=== PATIENT | female | born 1975 | race Caucasian/White ===

== ENCOUNTER 2020-09-13 16:39 | Observation (INO) ==
--- NOTE | 2020-09-13 16:43 | Emergency Department Note ---
Impression & Plan Atypical chest pain, History of aortic dissection ED Provider Note NAME: FERNANDEZ ELLIOTT AGE: 45 SEX: F : 1975 ARRIVES VIA: Ambulance INFORMANT: Patient, ED PROVIDER(S): Adelso Cho MD Chief Complaint: Chest pain HPI: Patient does present with concern for chest pain that began 1 hour prior to arrival. Patient describes it as an elephant sitting on her chest. Patient describes it as left-sided and but with moderate radiation to left arm. Patient does have a known history of aortic valve repair x2 and aortic dissection. This was repaired before. The patient does follow with Dr. Mendez and Dr. Miranda. Patient denies any fevers chills shortness of breath. The patient has had mild abdominal discomfort. Patient did receive aspirin nitro and nausea medication in route which mildly improved her symptoms. The patient does describe it as pressure. Patient did not have any diaphoresis. Patient denies any smoking history. The patient is not vaccinated for Covid. The patient denies infec tious symptoms. ROS: See HPI for pertinent positives and negatives. A total of 10 systems were revi ewed and otherwise negative. Past medical history: See below Surgical history: See below Social history: See below Physical Exam: GENERAL: Wearing a mask. NAD, non-toxic. EYE EXAM: Normal conjunctiva. PERRL, no anisocoria and EOM's grossly intact w/o pain. NECK: Supple, no nuchal rigidity, no adenopathy, non-tender. No signs of meningismus. LUNGS: Clear to auscultation. Normal chest wall mechanics. HEART: NSR, no MRG. ABDOMEN: Abdomen soft, non-tender, normo-active bowel sounds, no masses, no rebound or guarding. BACK: No CVA TTP. SKIN: No rashes and no bruising. UPPER EXTREMITIES: Upper extremities are grossly normal. LOWER EXTREMITIES: Grossly normal, no edema. NEURO EXAM: A&O x3, cranial nerves II-XII grossly intact, normal speech, moves all 4 extremities on command w/o issue. Differential diagnoses: Cardiac ischemia, aortic dissection, pulmonary embolism, pneumothorax, pneumonia, pericarditis, myocarditis, esophageal rupture, GERD, cholecystitis, pancreatitis, musculoskeletal, as well as other pathologies. Course: Patient was seen and evaluated the bedside. Full history physical exam was performed. EKG interpreted by me Normal sinus rhythm, rate of 65, normal intervals, normal axis, slight depressions in the lateral and high lateral leads. Imaging Studies: See below Cardiac monitoring: An order was placed for continuous cardiac monitoring. The monitor shows a rate of 65 with sinus rhythm. MDM: Patient did have bladder completed along with CT angiography is of the chest and abdomen. Patient has a normal white count H&H and platelet count. Kidney func tion is unremarkable. Mild hypokalemia. Patient's INR is therapeutic at 3. Covid negative. Patient CT angiography shows chronic type B dissection. No change. Given that the patient did have concerning atypical chest pain and has significant cardiac history it is reviewed the on-call hospitalist Arlene Sanchez PA-C. The patient was admitted by Dr. Flores. 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 H/O partial nephrectomy History of aortic dissection Hx of tubal ligation S/P appendectomy S/P cholecystectomy S/P tonsillectomy and adenoidectomy Family History Other Hypertension Ovarian cancer Tuberous sclerosis Social History (Updated 09/13/20 @ 19:06 by Arlene Sanchez PA-C) Smoking Status: Never smoker Hx Alcohol Use: No Hx Substance Use: No Preferred Language: Chinese Communication Ability: Effective Beliefs That Will Affect Care: None Current Living Situation: Significant Other Current Living Situation Comment: lives with boyfriend Other Information That Helps Us Care for You: Yes (son in 2018) Feels Safe at Home: Yes Safety Concerns: Feels Safe At This Time Assistive Devices: Denture - Upper and Glasses Allergies Allergies Allergy/AdvReac Type Severity Reaction Status Date / Time Sulfa (Sulfonamide Allergy Severe ANAPHYLAXIS Verified 09/13/20 19:03 Antibiotics) aloe Allergy Unknown ITCHY AND Verified 09/13/20 19:03 HIVES Cipro AdvReac Intermediate [facility] Verified 10/22/15 03:56 ciprofloxacin AdvReac Intermediate [facility] Verified 09/13/20 19:03 Home Meds Home Medications Medication Instructions Recorded Confirmed cholecalciferol (vitamin D3) 1,000 unit PO QAM 11/13/18 09/13/20 [Vitamin D3] levothyroxine 75 mcg PO DAILYBB 11/13/18 09/13/20 metoprolol tartrate 100 mg PO BID 11/13/18 09/13/20 multivitamin 1 tab PO QAM 11/13/18 09/13/20 omeprazole 20 mg PO QAM 11/13/18 09/13/20 potassium chloride [Klor-Con 10] 10 meq PO QAM 11/13/18 09/13/20 rosuvastatin 20 mg PO QAM 11/13/18 09/13/20 ascorbic acid (vitamin C) 250 mg PO QAM 04/23/19 09/13/20 furosemide 40 mg PO QAM 04/23/19 09/13/20 hydroxyzine HCl 25 mg PO TID PRN 04/23/19 09/13/20 amiodarone [Pacerone] 200 mg PO BID 09/13/20 09/13/20 docusate sodium [Colace] 100 mg PO BID PRN 09/13/20 09/13/20 warfarin [Jantoven] 2.5 mg PO DAILY@1600 09/13/20 09/13/20 Results & Data (ED) Vital Signs Vital Signs - 24 hr 09/13/20 16:45 09/13/20 16:51 09/13/20 16:54 Temperature 36.8 C Temperature Source Oral Pulse Rate 64 65 67 Pulse Rate from SpO2 Sensor 64 66 Respiratory Rate 21 20 19 Respiratory Effort / Characteristics Non-Labored Respiratory Depth Normal Respiratory Pattern Regular Blood Pressure 182/80 H 182/80 H Blood Pressure Mean 114 114 Blood Pressure Position Sitting Pulse Oximetry 95 97 95 Oxygen Delivery Method Room Air Sepsis Recent Fever Within 48 Hours No Sepsis New/Unexplained Change in Mental Status No Sepsis Action Taken by Nursing No Action Required 09/13/20 17:00 09/13/20 17:04 09/13/20 17:30 Temperature Temperature Source Oral Pulse Rate 67 64 Pulse Rate from SpO2 Sensor 65 65 Respiratory Rate 16 19 Respiratory Effort / Characteristics Respiratory Depth Respiratory Pattern Blood Pressure Blood Pressure Mean Blood Pressure Position Pulse Oximetry 96 97 Oxygen Delivery Method Room Air Sepsis Recent Fever Within 48 Hours Sepsis New/Unexplained Change in Mental Status Sepsis Action Taken by Nursing 09/13/20 17:32 09/13/20 18:38 Temperature Temperature Source Pulse Rate 68 62 Pulse Rate from SpO2 Sensor 67 Respiratory Rate 27 H 19 Respiratory Effort / Characteristics Respiratory Depth Respiratory Pattern Blood Pressure 174/100 H 162/82 H Blood Pressure Mean 124 108 Blood Pressure Position Pulse Oximetry 95 Oxygen Delivery Method Sepsis Recent Fever Within 48 Hours Sepsis New/Unexplained Change in Mental Status Sepsis Action Taken by Detention Medications Current Medication List: was personally reviewed by me Laboratory Data Attestation: I reviewed the patient's lab results. Result diagrams: 09/13/20 16:57 09/13/20 16:57 Lab Results 09/13/20 09/13/20 09/13/20 Range/Units 16:57 16:57 16:57 WBC 5.02 (4.8-10.8) K/uL RBC 4.46 (4.2-5.4) M/uL Hgb 13.8 (12.0-16.0) g/dL Hct 40.0 (37-47) % MCV 89.7 (80-100) fL MCH 30.9 (25-34) pg MCHC 34.5 (32-36) g/dL RDW Std Deviation 47.8 H (36.4-46.3) fL RDW Coeff of Leroy 14.5 (11.5-14.5) % Plt Count 205 (130-400) K/uL MPV 9.4 (7.4-10.4) fL Immature Gran % (Auto) 0.2 % Neut % (Auto) 52.0 % Lymph % (Auto) 38.2 % [place] % (Auto) 7.4 % Eos % (Auto) 1.6 % Baso % (Auto) 0.6 % Neut # (Auto) 2.61 (1.4-6.5) K/uL Lymph # (Auto) 1.92 (1.2-3.4) K/uL [place] # (Auto) 0.37 (0.11-0.59) K/uL Eos # (Auto) 0.08 (0-0.5) K/uL Baso # (Auto) 0.03 (0-0.2) K/uL Immature Gran # (Auto) 0.01 (0.00-0.02) K/uL PT 27.7 H (9.0-12.0) Seconds INR 3.0 H (0.9-1.1) APTT 45.4 H* (21.0-31.0) Seconds PTT Ratio 1.7 Sodium 140 (136-145) mmol/L Potassium 3.4 L (3.5-5.1) mmol/L Chloride 106 (98-107) mmol/L Carbon Dioxide 28 (21-32) mmol/L Anion Gap 6.0 (3-11) BUN 16 (7-18) mg/dl Creatinine 1.12 (0.6-1.2) mg/dl Est Cr Clr Drug Dosing 91.3 ml/min Est GFR ( Amer) 69.2 ml/min Est GFR (Non-Af Amer) 59.7 ml/min BUN/Creatinine Ratio 14.2 (10-20) Glucose 89 (70-99) mg/dl Calcium 9.2 (8.5-10.1) mg/dl Total Bilirubin 0.4 (0.2-1) mg/dl AST 12 L (15-37) U/L ALT 18 (12-78) U/L Alkaline Phosphatase 89 (45-117) U/L Troponin I < 0.015 (0-0.045) ng/ml Total Protein 7.3 (6.4-8.2) gm/dl Albumin 3.9 (3.4-5.0) gm/dl Globulin 3.4 (2.5-4.0) gm/dl Albumin/Globulin Ratio 1.1 (0.9-2) Lipase 212 (73-393) U/L COVID-19 Eval Order SARS-CoV-2 (PCR) (Negative) 09/13/20 09/13/20 Range/Units 17:30 17:30 WBC (4.8-10.8) K/uL RBC (4.2-5.4) M/uL Hgb (12.0-16.0) g/dL Hct (37-47) % MCV (80-100) fL MCH (25-34) pg MCHC (32-36) g/dL RDW Std Deviation (36.4-46.3) fL RDW Coeff of Leroy (11.5-14.5) % Plt Count (130-400) K/uL MPV (7.4-10.4) fL Immature Gran % (Auto) % Neut % (Auto) % Lymph % (Auto) % [place] % (Auto) % Eos % (Auto) % Baso % (Auto) % Neut # (Auto) (1.4-6.5) K/uL Lymph # (Auto) (1.2-3.4) K/uL [place] # (Auto) (0.11-0.59) K/uL Eos # (Auto) (0-0.5) K/uL Baso # (Auto) (0-0.2) K/uL Immature Gran # (Auto) (0.00-0.02) K/uL PT (9.0-12.0) Seconds INR (0.9-1.1) APTT (21.0-31.0) Seconds PTT Ratio Sodium (136-145) mmol/L Potassium (3.5-5.1) mmol/L Chloride (98-107) mmol/L Carbon Dioxide (21-32) mmol/L Anion Gap (3-11) BUN (7-18) mg/dl Creatinine (0.6-1.2) mg/dl Est Cr Clr Drug Dosing ml/min Est GFR ( Amer) ml/min Est GFR (Non-Af Amer) ml/min BUN/Creatinine Ratio (10-20) Glucose (70-99) mg/dl Calcium (8.5-10.1) mg/dl Total Bilirubin (0.2-1) mg/dl AST (15-37) U/L ALT (12-78) U/L Alkaline Phosphatase (45-117) U/L Troponin I (0-0.045) ng/ml Total Protein (6.4-8.2) gm/dl Albumin (3.4-5.0) gm/dl Globulin (2.5-4.0) gm/dl Albumin/Globulin Ratio (0.9-2) Lipase (73-393) U/L COVID-19 Eval Order Covid19 at [facility] SARS-CoV-2 (PCR) NEGATIVE (Negative) Administered Medications Discontinued Medications Ioversol (Optiray 320 125ml) 120 ml IV ONCE ONE Stop: 09/13/20 18:03 Last Admin: 09/13/20 18:02 Dose: 120 ml Documented by: [id number] Morphine Sulfate (Morphine Sulfate 4 Mg/Ml 1 Ml Carp\Vial) 4 mg IV NOW STA Stop: 09/13/20 16:52 Last Admin: 09/13/20 17:27 Dose: 4 mg Documented by: [id number] Imaging Data Radiologist's Impression: Abdomen/Pelvis CTA 09/13/20 16:51 CT ANGIOGRAM OF THE CHEST COMBO, CT ANGIOGRAM OF THE ABDOMEN AND PELVIS CLINICAL HISTORY: Atypical chest pain. Dyspnea. History of aortic dissection. COMPARISON STUDY: Chest CT dated 12/17/2014. Abdominal CT dated 04/23/2019. TECHNIQUE: Unenhanced CT of the chest is performed. Following the IV administration of 120 cc of Optiray 320, CT angiogram of the chest, abdomen, and pelvis was performed from the thoracic inlet to the proximal femora. Images are reviewed in the axial, sagittal, and coronal planes. 3-D MIPS images are created and assessed. IV contrast was administered without complication. A dose lowering technique was utilized adhering to the principles of ALARA. CT DOSE: 2976.21 mGy.cm FINDINGS: CHEST: Thyroid: Enlarged and heterogeneous. Thoracic aorta: No intramural hematoma is seen on the unenhanced series. Postoperative change is noted at the aortic root. The thoracic aorta is normal in course and caliber. The aortic arch demonstrates standard 3-vessel anatomy. There is unchanged appearance of a type B aortic dissection as compared to the 2015 examination. Dissection originates in the descending thoracic aorta and extends into the upper abdomen. The true and false lumen are patent. The arch vessels are widely patent. Pulmonary vasculature: The pulmonary trunk is normal in caliber. There are no filling defects within the main, lobar, or segmental pulmonary arteries to suggest pulmonary embolus. Heart: The patient is status post midline sternotomy. There is postoperative change at the aortic valve/root. The heart is mildly enlarged and without pericardial effusion. Fatty change involving the ventricular septum suggests previous myocardial ischemia. Lungs and pleural spaces: There is no airspace consolidation or pleural effusion. Mild scarring/atelectasis is noted at the lung bases. The trachea and central airways are clear. There is a 5 mm left apical pulmonary nodule seen on image #42. Additional (less than 10) 1 to 2 mm pulmonary nodules scattered throughout both lungs are also unchanged. These are of low suspicion. Mediastinum: There is no mediastinal lymphadenopathy. Glendy: Clear. Axillae: Surgical clips are noted in the right supraaxillary tissues. There is no axillary lymphadenopathy. Bony thorax: The skeletal structures are osteopenic. Mild compression deformities are noted in the thoracic spine. No lytic or blastic bony lesions are identified. ABDOMEN AND PELVIS: Liver: The contrast-enhanced liver is size and attenuation. There is mild nodularity of the hepatic surface contour. There is mild intrahepatic biliary ductal dilatation. The main portal veins appear patent. There are least 2 fat attenuation hepatic lesions. The largest is in the left lobe measures 1.8 cm. These likely represent lipomas/angiomyolipomas. Gallbladder: Surgically absent noting clips in the gallbladder fossa. Spleen: Normal in size and attenuation noting heterogeneous arterial phase enhancement. Pancreas: Unremarkable. Adrenal glands: A 1.8 cm low-attenuation right adrenal nodule is unchanged and likely represents an adenoma. The left adrenal gland is normal in appearance. Kidneys: The contrast enhanced kidneys are normal in size and without hydronephrosis. The kidneys enhance symmetrically. There is postoperative change from partial nephrectomy noted in both kidneys. No enhancing cortical lesion is identified on today's examination. Abdominal aorta and iliac arteries: There is mild atherosclerotic calcification of the abdominal aorta. 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 This extends from the descending thoracic aorta to the iliac bifurcation. The true and false lumens are patent. The iliac arteries are widely patent bilaterally. Major branches of the abdominal aorta: The celiac trunk, superior mesenteric, and inferior mesenteric arteries are widely patent. The celiac trunk and superior mesenteric arteries arise from the true lumen. The inferior mesenteric artery straddles the dissection. Hepatic arterial anatomy is conventional. The splenic artery is patent. Single bilateral renal arteries are widely patent. The renal arteries arise from the true lumen. Stomach and bowel: There is a small hiatal hernia. There is no bowel obstruction. Scattered colonic diverticula are noted without CT evidence of acute diverticulitis. The appendix is surgically absent. Peritoneum: There is no intraperitoneal free air or abdominal ascites. There is a fat-containing umbilical hernia. Lymphadenopathy: None. Pelvic viscera: Postsurgical change is noted in the left groin. The bladder is normal as visualized. The uterus is heterogeneous. Question fibroids. The adnexa are normal as imaged noting bilateral ovarian follicles. Skeletal structures: The skeletal structures are osteopenic. There is mild lumbosacral spondylosis. No lytic or blastic lesions are seen. IMPRESSION: 1. Postoperative change is again seen involving the aortic valve/aortic root. 2. There is unchanged appearance of a type B aortic dissection of the thoracic and abdominal aorta as detailed above when compared to prior studies. 3. There is no evidence of pulmonary embolus in the main, lobar, or segmental pulmonary arteries. 4. Unremarkable CT angiogram of the major branches of the abdominal aorta. 5. There is no airspace consolidation or pleural effusion. 6. No acute infectious or inflammatory findings identified in the abdomen or pelvis. 7. 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 8. Partial nephrectomy change is noted in both kidneys. 9. Cardiomegaly. 10. Additional findings as above. ACT 112: Negative or not required by law. Electronically signed by: Stanley Martinez M.D. 09/13/2020 6:32 PM Chest CTA 09/13/20 16:51 CT ANGIOGRAM OF THE CHEST COMBO, CT ANGIOGRAM OF THE ABDOMEN AND PELVIS CLINICAL HISTORY: Atypical chest pain. Dyspnea. History of aortic dissection. COMPARISON STUDY: Chest CT dated 12/17/2014. Abdominal CT dated 04/23/2019. TECHNIQUE: Unenhanced CT of the chest is performed. Following the IV administration of 120 cc of Optiray 320, CT angiogram of the chest, abdomen, and pelvis was performed from the thoracic inlet to the proximal femora. Images are reviewed in the axial, sagittal, and coronal planes. 3-D MIPS images are created and assessed. IV contrast was administered without complication. A dose lowering technique was utilized adhering to the principles of ALARA. CT DOSE: 2976.21 mGy.cm FINDINGS: CHEST: Thyroid: Enlarged and heterogeneous. Thoracic aorta: No intramural hematoma is seen on the unenhanced series. Postoperative change is noted at the aortic root. The thoracic aorta is normal in course and caliber. The aortic arch demonstrates standard 3-vessel anatomy. There is unchanged appearance of a type B aortic dissection as compared to the 2015 examination. Dissection originates in the descending thoracic aorta and extends into the upper abdomen. The true and false lumen are patent. The arch vessels are widely patent. Pulmonary vasculature: The pulmonary trunk is normal in caliber. There are no filling defects within the main, lobar, or segmental pulmonary arteries to suggest pulmonary embolus. Heart: The patient is status post midline sternotomy. There is postoperative change at the aortic valve/root. The heart is mildly enlarged and without pericardial effusion. Fatty change involving the ventricular septum suggests previous myocardial ischemia. Lungs and pleural spaces: There is no airspace consolidation or pleural effusion. Mild scarring/atelectasis is noted at the lung bases. The trachea and central airways are clear. There is a 5 mm left apical pulmonary nodule seen on image #42. Additional (less than 10) 1 to 2 mm pulmonary nodules scattered throughout both lungs are also unchanged. These are of low suspicion. Mediastinum: There is no mediastinal lymphadenopathy. Glendy: Clear. Axillae: Surgical clips are noted in the right supraaxillary tissues. There is no axillary lymphadenopathy. Bony thorax: The skeletal structures are osteopenic. Mild compression deformities are noted in the thoracic spine. No lytic or blastic bony lesions are identified. ABDOMEN AND PELVIS: Liver: The contrast-enhanced liver is size and attenuation. There is mild nod ularity of the hepatic surface contour. There is mild intrahepatic biliary ductal dilatation. The main portal veins appear patent. There are least 2 fat attenuation hepatic lesions. The largest is in the left lobe measures 1.8 cm. These likely represent lipomas/angiomyolipomas. Gallbladder: Surgically absent noting clips in the gallbladder fossa. Spleen: Normal in size and attenuation noting heterogeneous arterial phase enhancement. Pancreas: Unremarkable. Adrenal glands: A 1.8 cm low-attenuation right adrenal nodule is unchanged and likely represents an adenoma. The left adrenal gland is normal in appearance. Kidneys: The contrast enhanced kidneys are normal in size and without hydronephrosis. The kidneys enhance symmetrically. There is postoperative change from partial nephrectomy noted in both kidneys. No enhancing cortical lesion is identified on today's examination. Abdominal aorta and iliac arteries: There is mild atherosclerotic calcification of the abdominal aorta. 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 This extends from the descending thoracic aorta to the iliac bifurcation. The true and false lumens are patent. The iliac arteries are widely patent bilaterally. Major branches of the abdominal aorta: The celiac trunk, superior mesenteric, an d inferior mesenteric arteries are widely patent. The celiac trunk and superior mesenteric arteries arise from the true lumen. The inferior mesenteric artery straddles the dissection. Hepatic arterial anatomy is conventional. The splenic artery is patent. Single bilateral renal arteries are widely patent. The renal arteries arise from the true lumen. Stomach and bowel: There is a small hiatal hernia. There is no bowel obstruction. Scattered colonic diverticula are noted without CT evidence of acute diverticulitis. The appendix is surgically absent. Peritoneum: There is no intraperitoneal free air or abdominal ascites. There is a fat-containing umbilical hernia. Lymphadenopathy: None. Pelvic viscera: Postsurgical change is noted in the left groin. The bladder is normal as visualized. The uterus is heterogeneous. Question fibroids. The adnexa are normal as imaged noting bilateral ovarian follicles. Skeletal structures: The skeletal structures are osteopenic. There is mild lumbosacral spondylosis. No lytic or blastic lesions are seen. IMPRESSION: 1. Postoperative change is again seen involving the aortic valve/aortic root. 2. There is unchanged appearance of a type B aortic dissection of the thoracic and abdominal aorta as detailed above when compared to prior studies. 3. There is no evidence of pulmonary embolus in the main, lobar, or segmental pulmonary arteries. 4. Unremarkable CT angiogram of the major branches of the abdominal aorta. 5. There is no airspace consolidation or pleural effusion. 6. No acute infectious or inflammatory findings identified in the abdomen or pelvis. 7. 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 8. Partial nephrectomy change is noted in both kidneys. 9. Cardiomegaly. 10. Additional findings as above. ACT 112: Negative or not required by law. Electronically signed by: Stanley Martinez M.D. 09/13/2020 6:32 PM Chest X-Ray 09/13/20 16:51 SINGLE VIEW CHEST CLINICAL HISTORY: Atypical chest pain. Dyspnea. FINDINGS: An AP, portable, upright chest radiograph is compared to study dated 06/02/2015. Correlation is made with chest CT dated 12/17/2014. The patient is status post midline sternotomy and cardiac valve surgery. The heart is mildly enlarged. The pulmonary vasculature is noncongested. There is bibasilar atelectasis. No airspace consolidation or pleural effusion is identified. No pneumothorax is seen. The skeletal structures appear osteopenic. The bony thorax is grossly intact. Surgical clips project in the right upper chest. IMPRESSION: Mild cardiac enlargement with no active disease in the chest. ACT 112: Negative or not required by law. Electronically signed by: Stanley Martinez M.D. 09/13/2020 5:57 PM Discharge Plan Visit Data Chief Complaint: Chest Pain Stated Complaint: CHEST PAIN ED Provider: Adelso Cho Discharge Problem: Atypical chest pain, History of aortic dissection Patient Disposition: Admitted As Inpatient Discharge Instructions Interventions: ED Discharge Assessment Last Done: 09/13/20 19:56
[2020-09-13] MEDS ORDERED: MoRPHine SULFATE 4 MG/ML 1 ML CARP\\VIAL IV STA ×2 (16:51→21:05)
[2020-09-13 17:05] LABS: Basophils # (auto) 0.03 K/uL (0-0.2); Basophils % (auto) 0.6 %; Eosinophils # (auto) 0.08 K/uL (0-0.5); Eosinophils % (auto) 1.6 %; Hemoglobin 13.8 g/dL (12.0-16.0); Immature Granulocytes # (auto) 0.01 K/uL (0.00-0.02); Immature Granulocytes % (auto) 0.2 %; Lymphocytes # (auto) 1.92 K/uL (1.2-3.4); Lymphocytes % (auto) 38.2 %; Mean Corpuscular Hemoglobin 30.9 pg (25-34); Mean Corpuscular Hgb Conc 34.5 g/dL (32-36); Mean Corpuscular Volume 89.7 fL (80-100); Mean Platelet Volume 9.4 fL (7.4-10.4); Monocytes # (auto) 0.37 K/uL (0.11-0.59); Monocytes % (auto) 7.4 %; Neutrophils # (auto) 2.61 K/uL (1.4-6.5); Platelet Count 205 K/uL (130-400); RDW Coefficient of Variation 14.5 % (11.5-14.5); RDW Standard Deviation 47.8 fL (36.4-46.3); Red Blood Count 4.46 M/uL (4.2-5.4); White Blood Count 5.02 K/uL (4.8-10.8)
[2020-09-13 17:28] LABS: Alanine Aminotransferase 18 U/L (12-78); Albumin Level 3.9 gm/dl (3.4-5.0); Aspartate Aminotransferase 12 U/L (15-37); BUN Creatinine Ratio 14.2 (10-20); Blood Urea Nitrogen 16 mg/dl (7-18); Calcium 9.2 mg/dl (8.5-10.1); Carbon Dioxide 28 mmol/L (21-32); Chloride 106 mmol/L (98-107); Creatinine Clr Calc Pharmacy 91.3 ml/min; Est GFR (African American) 69.2 ml/min; Est GFR (Non-African American) 59.7 ml/min; Glucose 89 mg/dl (70-99); Lipase 212 U/L (73-393); Potassium 3.4 mmol/L (3.5-5.1); Sodium 140 mmol/L (136-145)
[2020-09-13 17:33] LABS: Albumin Globulin Ratio 1.1 (0.9-2); Alkaline Phosphatase 89 U/L (45-117); Bilirubin,Total 0.4 mg/dl (0.2-1); Globulin 3.4 gm/dl (2.5-4.0); Total Protein 7.3 gm/dl (6.4-8.2); Troponin I < 0.015 ng/ml (0-0.045)
[2020-09-13 17:34] LABS: Partial Thromboplastin Ratio 1.7; Prothrombin Time 27.7 Seconds (9.0-12.0)
[2020-09-13 17:44] LABS: Partial Thromboplastin Time 45.4 Seconds (21.0-31.0)
--- NOTE | 2020-09-13 17:58 | XRay Report ---
SINGLE VIEW CHEST CLINICAL HISTORY: Atypical chest pain. Dyspnea. FINDINGS: An AP, portable, upright chest radiograph is compared to study dated 06/02/2015. Correlation is made with chest CT dated 12/17/2014. The patient is status post midline sternotomy and cardiac bryce ve surgery. The heart is mildly enlarged. The pulmonary vasculature is noncongested. There is bibasil ar atelectasis. No airspace consolidation or pleural effusion is identified. No pneumothorax is seen. The skeletal structures appear osteopenic. The bony thorax is grossly intact. Surgical clips project in the right upper chest. IMPRESSION: Mild cardiac enlargement with no active disease in the chest. ACT 112: Negative or not required by law. Electronically signed by: Stanley Martinez M.D. 09/13/2020 5:57 PM
[2020-09-13] MEDS ORDERED: OPTIRAY 320 125ml IV ONE (18:02)
--- NOTE | 2020-09-13 18:34 | CT Scan Report ---
CT ANGIOGRAM OF THE CHEST COMBO, CT ANGIOGRAM OF THE ABDOMEN AND PELVIS CLINICAL HISTORY: Atypical chest pain. Dyspnea. History of aortic dissection. COMPARISON STUDY: Chest CT dated 12/17/2014. Abdominal CT dated 04/23/2019. TECHNIQUE: Unenhanced CT of the chest is performed. Following the IV administration of 120 cc of Opti ray 320, CT angiogram of the chest, abdomen, and pelvis was performed from the thoracic inlet to the proximal femora. Images are reviewed in the axial, sagittal, and coronal planes. 3-D MIPS images are created and assessed. IV contrast was administered without complication. A dose lowering technique wa s utilized adhering to the principles of ALARA. CT DOSE: 2976.21 mGy.cm FINDINGS: CHEST: Thyroid: Enlarged and heterogeneous. Thoracic aorta: No intramural hematoma is seen on the unenhanced series. Postoperative change is note d at the aortic root. The thoracic aorta is normal in course and caliber. The aortic arch demonstrate s standard 3-vessel anatomy. There is unchanged appearance of a type B aortic dissection as compared to the 2015 examination. Dissection originates in the descending thoracic aorta and extends into the upper abdomen. The true and false lumen are patent. The arch vessels are widely patent. Pulmonary vasculature: The pulmonary trunk is normal in caliber. There are no filling defects within the main, lobar, or segmental pulmonary arteries to suggest pulmonary embolus. Heart: The patient is status post midline sternotomy. There is postoperative change at the aortic bryce ve/root. The heart is mildly enlarged and without pericardial effusion. Fatty change involving the ve ntricular septum suggests previous myocardial ischemia. Lungs and pleural spaces: There is no airspace consolidation or pleural effusion. Mild scarring/atele ctasis is noted at the lung bases. The trachea and central airways are clear. There is a 5 mm left ap ical pulmonary nodule seen on image #42. Additional (less than 10) 1 to 2 mm pulmonary nodules scatte red throughout both lungs are also unchanged. These are of low suspicion. Mediastinum: There is no mediastinal lymphadenopathy. Glendy: Clear. Axillae: Surgical clips are noted in the right supraaxillary tissues. There is no axillary lymphadeno russ. Bony thorax: The skeletal structures are osteopenic. Mild compression deformities are noted in the th oracic spine. No lytic or blastic bony lesions are identified. ABDOMEN AND PELVIS: Liver: The contrast-enhanced liver is size and attenuation. There is mild nodularity of the hepatic s urface contour. There is mild intrahepatic biliary ductal dilatation. The main portal veins appear pa tent. There are least 2 fat attenuation hepatic lesions. The largest is in the left lobe measures 1.8 cm. These likely represent lipomas/angiomyolipomas. Gallbladder: Surgically absent noting clips in the gallbladder fossa. Spleen: Normal in size and attenuation noting heterogeneous arterial phase enhancement. Pancreas: Unremarkable. Adrenal glands: A 1.8 cm low-attenuation right adrenal nodule is unchanged and likely represents an a denoma. The left adrenal gland is normal in appearance. Kidneys: The contrast enhanced kidneys are normal in size and without hydronephrosis. The kidneys enh ance symmetrically. There is postoperative change from partial nephrectomy noted in both kidneys. No enhancing cortical lesion is identified on today's examination. Abdominal aorta and iliac arteries: There is mild atherosclerotic calcification of the abdominal aort a. 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 This extend s from the descending thoracic aorta to the iliac bifurcation. The true and false lumens are patent. The iliac arteries are widely patent bilaterally. Major branches of the abdominal aorta: The celiac trunk, superior mesenteric, and inferior mesenteric arteries are widely patent. The celiac trunk and superior mesenteric arteries arise from the true monique men. The inferior mesenteric artery straddles the dissection. Hepatic arterial anatomy is conventiona l. The splenic artery is patent. Single bilateral renal arteries are widely patent. The renal arterie s arise from the true lumen. Stomach and bowel: There is a small hiatal hernia. There is no bowel obstruction. Scattered colonic d iverticula are noted without CT evidence of acute diverticulitis. The appendix is surgically absent. Peritoneum: There is no intraperitoneal free air or abdominal ascites. There is a fat-containing umbi lical hernia. Lymphadenopathy: None. Pelvic viscera: Postsurgical change is noted in the left groin. The bladder is normal as visualized. The uterus is heterogeneous. Question fibroids. The adnexa are normal as imaged noting bilateral ovar esther follicles. Skeletal structures: The skeletal structures are osteopenic. There is mild lumbosacral spondylosis. N o lytic or blastic lesions are seen. IMPRESSION: 1. Postoperative change is again seen involving the aortic valve/aortic root. 2. There is unchanged appearance of a type B aortic dissection of the thoracic and abdominal aorta as detailed above when compared to prior studies. 3. There is no evidence of pulmonary embolus in the main, lobar, or segmental pulmonary arteries. 4. Unremarkable CT angiogram of the major branches of the abdominal aorta. 5. There is no airspace consolidation or pleural effusion. 6. No acute infectious or inflammatory findings identified in the abdomen or pelvis. 7. 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 8. Partial nephrectomy change is noted in both kidneys. 9. Cardiomegaly. 10. Additional findings as above. ACT 112: Negative or not required by law. Electronically signed by: Stanley Martinez M.D. 09/13/2020 6:32 PM
--- NOTE | 2020-09-13 18:52 | History & Physical Report ---
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 Chest heaviness improved with ntg EKG without acute ischemic changes Initial troponin negative Chest CTA with unchanged appearance of a type B aortic dissection of the thoracic and abdominal aorta when compared to prior studies, no evidence of PE Follows with CHRISTIANE Coronel for cardiology and Dr. 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 Barrett of neurology S/p partial L nephrectomy in 2016 and partial R nephrectomy in 2019 (3) History of aortic dissection: History of type 1 aortic dissection with repair in 2006, "Type B" aortic dissection without change on CT scan in 2012 Also presence of aneurysm of the distal descending abdominal aorta measuring 3.4 x 3.1 cm - will also need surveillance (4) CKD (chronic kidney disease), stage III: Renal function at baseline. Monitor with daily BMP (5) Chronic diastolic (congestive) heart failure: Appears euvolemic. Continue Lasix (6) Atrial fibrillation: Continue amiodarone, Lopressor BID Continue Coumadin for anticoagulation Daily INR (7) Hypothyroidism: Continue levothyroxine DVT Ppx: coumadin Code status: FULL PCP: Chandan Dispo: Observation telemetry Patient seen in collaboration with Dr. Flores. Please see addendum. 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 States she was watching TV earlier today when she developed heaviness on left- sided chest. Pain radiated up towards left shoulder and was worse when she ambulated to the restroom. Not associate with any shortness of breath, nausea or vomiting. Improved when given nitro by EMS in route to hospital. Also received 3 and 24 mg of aspirin. Also endorsing some palpitations intermittently since developing chest pain earlier today. Follows with CHRISTIANE Coronel for cardiology and Dr. Miranda for EP cardiology. 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 Last 2D echo from 03/08 showed EF 60-64%, left ventricular diastolic function is severely abnormal (grade III). Patient is status post valve in valve TAVR. Allergies Allergy/AdvReac Type Severity Reaction Status Date / Time Sulfa (Sulfonamide Allergy Severe ANAPHYLAXIS Verified 09/13/20 19:03 Antibiotics) aloe Allergy Unknown ITCHY AND Verified 09/13/20 19:03 HIVES Cipro AdvReac Intermediate siezure Verified 10/22/15 03:56 ciprofloxacin AdvReac Intermediate siezure Verified 09/13/20 19:03 Home Medications Medication Instructions Recorded Confirmed Type cholecalciferol (vitamin D3) 1,000 unit PO QAM 11/13/18 09/13/20 History [Vitamin D3] levothyroxine 75 mcg PO DAILYBB 11/13/18 09/13/20 History metoprolol tartrate 100 mg PO BID 11/13/18 09/13/20 History multivitamin 1 tab PO QAM 11/13/18 09/13/20 History omeprazole 20 mg PO QAM 11/13/18 09/13/20 History potassium chloride [Klor-Con 10] 10 meq PO QAM 11/13/18 09/13/20 History rosuvastatin 20 mg PO QAM 11/13/18 09/13/20 History ascorbic acid (vitamin C) 250 mg PO QAM 04/23/19 09/13/20 History furosemide 40 mg PO QAM 04/23/19 09/13/20 History hydroxyzine HCl 25 mg PO TID PRN 04/23/19 09/13/20 History Keppra 1,000 mg PO BID 09/13/20 09/13/20 History amiodarone [Pacerone] 200 mg PO BID 09/13/20 09/13/20 History docusate sodium [Colace] 100 mg PO BID PRN 09/13/20 09/13/20 History sertraline 200 mg PO DAILY 09/13/20 09/13/20 History warfarin [Jantoven] 2.5 mg PO DAILY@1600 09/13/20 09/13/20 History 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 H/O partial nephrectomy History of aortic dissection Hx of tubal ligation S/P appendectomy S/P cholecystectomy S/P tonsillectomy and adenoidectomy Family History Other Hypertension Ovarian cancer Tuberous sclerosis Social History (Updated 09/13/20 @ 19:06 by Arlene Sanchez PA-C) Smoking Status: Never smoker Hx Alcohol Use: No Hx Substance Use: No Preferred Language: Malian Communication Ability: Effective Beliefs That Will Affect Care: None Current Living Situation: Significant Other Current Living Situation Comment: lives with boyfriend Other Information That Helps Us Care for You: Yes (son in 2018) Feels Safe at Home: Yes Safety Concerns: Feels Safe At This Time Assistive Devices: Denture - Upper and Glasses Review of Systems Review of Systems: At least ten systems reviewed and negative except as noted in the HPI. Physical Exam Physical Exam: General Appearance: WD/WN, vitals as above, NAD, sitting up in bed, pleasant, conversing easily Head: normocephalic, atraumatic Eyes: normal inspection, PERRL, conjunctivae normal, anicteric sclerae ENT: external ear and nose normal, oropharynx normal Neck: normal visual inspection, trachea midline, no thyromegaly Respiratory: normal respiratory effort, lungs clear to auscultation, no wheeze, rales, rhonchi. No accessory muscle use Cardiovascular: regular rate, rhythm, systolic murmur, normal peripheral pulses, no BLE edema. Vessels: no JVD Chest: normal inspection of chest, left sided CP reproducible with palpation Abdomen/GI: normal bowel sounds, soft, nontender, no hepatosplenomegaly Extremities/Musculoskeletal: no cyanosis or clubbing, extremities motor strength 5/5 Neurologic: PERRL, EOMI, accommodation nl, no face palsy, no dysarthria, CN's II-XI intact bilaterally and moves all extremities Psychiatric: A+Ox3, euthymic affect Skin: no rashes, normal color, warm/dry Results & Data Results & Data ([facility]) Vital Signs (Past 12 Hours) Vital Signs Temp Pulse Resp BP Pulse Ox 09/13/20 17:32 68 27 H 174/100 H 95 09/13/20 17:30 64 19 97 09/13/20 17:00 67 16 96 09/13/20 16:54 67 19 95 09/13/20 16:51 36.8 C 65 20 182/80 H 97 09/13/20 16:45 64 21 182/80 H 95 Laboratory Results Short CBC 09/13/20 Range/Units 16:57 WBC 5.02 (4.8-10.8) K/uL Hgb 13.8 (12.0-16.0) g/dL Hct 40.0 (37-47) % Plt Count 205 (130-400) K/uL BMP 09/13/20 16:57 Sodium 140 Potassium 3.4 L Chloride 106 Carbon Dioxide 28 BUN 16 Creatinine 1.12 Glucose 89 Calcium 9.2 Cardiac Enzymes 09/13/20 Range/Units 16:57 Troponin I < 0.015 (0-0.045) ng/ml Liver Function 09/13/20 Range/Units 16:57 Total Bilirubin 0.4 (0.2-1) mg/dl AST 12 L (15-37) U/L ALT 18 (12-78) U/L Alkaline Phosphatase 89 (45-117) U/L Albumin 3.9 (3.4-5.0) gm/dl Diagnostic Findings Abdomen/Pelvis CTA 09/13/20 16:51 CT ANGIOGRAM OF THE CHEST COMBO, CT ANGIOGRAM OF THE ABDOMEN AND PELVIS CLINICAL HISTORY: Atypical chest pain. Dyspnea. History of aortic dissection. COMPARISON STUDY: Chest CT dated 12/17/2014. Abdominal CT dated 04/23/2019. TECHNIQUE: Unenhanced CT of the chest is performed. Following the IV administration of 120 cc of Optiray 320, CT angiogram of the chest, abdomen, and pelvis was performed from the thoracic inlet to the proximal femora. Images are reviewed in the axial, sagittal, and coronal planes. 3-D MIPS images are created and assessed. IV contrast was administered without complication. A dose lowering technique was utilized adhering to the principles of ALARA. CT DOSE: 2976.21 mGy.cm FINDINGS: CHEST: Thyroid: Enlarged and heterogeneous. Thoracic aorta: No intramural hematoma is seen on the unenhanced series. Postoperative change is noted at the aortic root. The thoracic aorta is normal in course and caliber. The aortic arch demonstrates standard 3-vessel anatomy. There is unchanged appearance of a type B aortic dissection as compared to the 2015 examination. Dissection originates in the descending thoracic aorta and extends into the upper abdomen. The true and false lumen are patent. The arch vessels are widely patent. Pulmonary vasculature: The pulmonary trunk is normal in caliber. There are no filling defects within the main, lobar, or segmental pulmonary arteries to suggest pulmonary embolus. Heart: The patient is status post midline sternotomy. There is postoperative change at the aortic valve/root. The heart is mildly enlarged and without pericardial effusion. Fatty change involving the ventricular septum suggests previous myocardial ischemia. Lungs and pleural spaces: There is no airspace consolidation or pleural effusion. Mild scarring/atelectasis is noted at the lung bases. The trachea and central airways are clear. There is a 5 mm left apical pulmonary nodule seen on image #42. Additional (less than 10) 1 to 2 mm pulmonary nodules scattered throughout both lungs are also unchanged. These are of low suspicion. Mediastinum: There is no mediastinal lymphadenopathy. Glendy: Clear. Axillae: Surgical clips are noted in the right supraaxillary tissues. There is no axillary lymphadenopathy. Bony thorax: The skeletal structures are osteopenic. Mild compression deformities are noted in the thoracic spine. No lytic or blastic bony lesions are identified. ABDOMEN AND PELVIS: Liver: The contrast-enhanced liver is size and attenuation. There is mild nodularity of the hepatic surface contour. There is mild intrahepatic biliary ductal dilatation. The main portal veins appear patent. There are least 2 fat attenuation hepatic lesions. The largest is in the left lobe measures 1.8 cm. These likely represent lipomas/angiomyolipomas. Gallbladder: Surgically absent noting clips in the gallbladder fossa. Spleen: Normal in size and attenuation noting heterogeneous arterial phase enhancement. Pancreas: Unremarkable. Adrenal glands: A 1.8 cm low-attenuation right adrenal nodule is unchanged and likely represents an adenoma. The left adrenal gland is normal in appearance. Kidneys: The contrast enhanced kidneys are normal in size and without hydronephrosis. The kidneys enhance symmetrically. There is postoperative change from partial nephrectomy noted in both kidneys. No enhancing cortical lesion is identified on today's examination. Abdominal aorta and iliac arteries: There is mild atherosclerotic calcification of the abdominal aorta. 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 A t ype B dissection of the abdominal aorta is unchanged. This extends from the descending thoracic aorta to the iliac bifurcation. The true and false lumens are patent. The iliac arteries are widely patent bilaterally. Major branches of the abdominal aorta: The celiac trunk, superior mesenteric, and inferior mesenteric arteries are widely patent. The celiac trunk and superior mesenteric arteries arise from the true lumen. The inferior mesenteric artery straddles the dissection. Hepatic arterial anatomy is conventional. The splenic artery is patent. Single bilateral renal arteries are widely patent. The renal arteries arise from the true lumen. Stomach and bowel: There is a small hiatal hernia. There is no bowel obstruction. Scattered colonic diverticula are noted without CT evidence of ac [place] diverticulitis. The appendix is surgically absent. Peritoneum: There is no intraperitoneal free air or abdominal ascites. There is a fat-containing umbilical hernia. Lymphadenopathy: None. Pelvic viscera: Postsurgical change is noted in the left groin. The bladder is normal as visualized. The uterus is heterogeneous. Question fibroids. The adnexa are normal as imaged noting bilateral ovarian follicles. Skeletal structures: The skeletal structures are osteopenic. There is mild lumbosacral spondylosis. No lytic or blastic lesions are seen. IMPRESSION: 1. Postoperative change is again seen involving the aortic valve/aortic root. 2. There is unchanged appearance of a type B aortic dissection of the thoracic and abdominal aorta as detailed above when compared to prior studies. 3. There is no evidence of pulmonary embolus in the main, lobar, or segmental pulmonary arteries. 4. Unremarkable CT angiogram of the major branches of the abdominal aorta. 5. There is no airspace consolidation or pleural effusion. 6. No acute infectious or inflammatory findings identified in the abdomen or pelvis. 7. 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 8. Partial nephrectomy change is noted in both kidneys. 9. Cardiomegaly. 10. Additional findings as above. ACT 112: Negative or not required by law. Electronically signed by: Stanley Martinez M.D. 09/13/2020 6:32 PM Chest CTA 09/13/20 16:51 CT ANGIOGRAM OF THE CHEST COMBO, CT ANGIOGRAM OF THE ABDOMEN AND PELVIS CLINICAL HISTORY: Atypical chest pain. Dyspnea. History of aortic dissection. COMPARISON STUDY: Chest CT dated 12/17/2014. Abdominal CT dated 04/23/2019. TECHNIQUE: Unenhanced CT of the chest is performed. Following the IV administration of 120 cc of Optiray 320, CT angiogram of the chest, abdomen, and pelvis was performed from the thoracic inlet to the proximal femora. Images are reviewed in the axial, sagittal, and coronal planes. 3-D MIPS images are created and assessed. IV contrast was administered without complication. A dose lowering technique was utilized adhering to the principles of ALARA. CT DOSE: 2976.21 mGy.cm FINDINGS: CHEST: Thyroid: Enlarged and heterogeneous. Thoracic aorta: No intramural hematoma is seen on the unenhanced series. Postoperative change is noted at the aortic root. The thoracic aorta is normal in course and caliber. The aortic arch demonstrates standard 3-vessel anatomy. There is unchanged appearance of a type B aortic dissection as compared to the 2015 examination. Dissection originates in the descending thoracic aorta and extends into the upper abdomen. The true and false lumen are patent. The arch vessels are widely patent. Pulmonary vasculature: The pulmonary trunk is normal in caliber. There are no filling defects within the main, lobar, or segmental pulmonary arteries to suggest pulmonary embolus. Heart: The patient is status post midline sternotomy. There is postoperative change at the aortic valve/root. The heart is mildly enlarged and without pericardial effusion. Fatty change involving the ventricular septum suggests previous myocardial ischemia. Lungs and pleural spaces: There is no airspace consolidation or pleural effusion. Mild scarring/atelectasis is noted at the lung bases. The trachea and central airways are clear. There is a 5 mm left apical pulmonary nodule seen on image #42. Additional (less than 10) 1 to 2 mm pulmonary nodules scattered throughout both lungs are also unchanged. These are of low suspicion. Mediastinum: There is no mediastinal lymphadenopathy. Glendy: Clear. Axillae: Surgical clips are noted in the right supraaxillary tissues. There is no axillary lymphadenopathy. Bony thorax: The skeletal structures are osteopenic. Mild compression deformities are noted in the thoracic spine. No lytic or blastic bony lesions are identified. ABDOMEN AND PELVIS: Liver: The contrast-enhanced liver is size and attenuation. There is mild nodularity of the hepatic surface contour. There is mild intrahepatic biliary ductal dilatation. The main portal veins appear patent. There are least 2 fat attenuation hepatic lesions. The largest is in the left lobe measures 1.8 cm. These likely represent lipomas/angiomyolipomas. Gallbladder: Surgically absent noting clips in the gallbladder fossa. Spleen: Normal in size and attenuation noting heterogeneous arterial phase enhancement. Pancreas: Unremarkable. Adrenal glands: A 1.8 cm low-attenuation right adrenal nodule is unchanged and likely represents an adenoma. The left adrenal gland is normal in appearance. Kidneys: The contrast enhanced kidneys are normal in size and without hydronephrosis. The kidneys enhance symmetrically. There is postoperative change from partial nephrectomy noted in both kidneys. No enhancing cortical lesion is identified on today's examination. Abdominal aorta and iliac arteries: There is mild atherosclerotic calcification of the abdominal aorta. 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 This extends from the descending thoracic aorta to the iliac bifurcation. The true and false lumens are patent. The iliac arteries are widely patent bilaterally. Major branches of the abdominal aorta: The celiac trunk, superior mesenteric, and inferior mesenteric arteries are widely patent. The celiac trunk and superior mesenteric arteries arise from the true lumen. The inferior mesenteric artery straddles the dissection. Hepatic arterial anatomy is conventional. The splenic artery is patent. Single bilateral renal arteries are widely patent. The renal arteries arise from the true lumen. Stomach and bowel: There is a small hiatal hernia. There is no bowel obstruction. Scattered colonic diverticula are noted without CT evidence of acute diverticulitis. The appendix is surgically absent. Peritoneum: There is no intraperitoneal free air or abdominal ascites. There is a fat-containing umbilical hernia. Lymphadenopathy: None. Pelvic viscera: Postsurgical change is noted in the left groin. The bladder is normal as visualized. The uterus is heterogeneous. Question fibroids. The adnexa are normal as imaged noting bilateral ovarian follicles. Skeletal structures: The skeletal structures are osteopenic. There is mild lumbosacral spondylosis. No lytic or blastic lesions are seen. IMPRESSION: 1. Postoperative change is again seen involving the aortic valve/aortic root. 2. There is unchanged appearance of a type B aortic dissection of the thoracic and abdominal aorta as detailed above when compared to prior studies. 3. There is no evidence of pulmonary embolus in the main, lobar, or segmental pulmonary arteries. 4. Unremarkable CT angiogram of the major branches of the abdominal aorta. 5. There is no airspace consolidation or pleural effusion. 6. No acute infectious or inflammatory findings identified in the abdomen or pelvis. 7. 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 8. Partial nephrectomy change is noted in both kidneys. 9. Cardiomegaly. 10. Additional findings as above. ACT 112: Negative or not required by law. Electronically signed by: Stanley Martinez M.D. 09/13/2020 6:32 PM Chest X-Ray 09/13/20 16:51 SINGLE VIEW CHEST CLINICAL HISTORY: Atypical chest pain. Dyspnea. FINDINGS: An AP, portable, upright chest radiograph is compared to study dated 06/02/2015. Correlation is made with chest CT dated 12/17/2014. The patient is status post midline sternotomy and cardiac valve surgery. The heart is mildly enlarged. The pulmonary vasculature is noncongested. There is bibasilar atelectasis. No airspace consolidation or pleural effusion is identified. No pneumothorax is seen. The skeletal structures appear osteopenic. The bony thorax is grossly intact. Surgical clips project in the right upper chest. IMPRESSION: Mild cardiac enlargement with no active disease in the chest. ACT 112: Negative or not required by law. Electronically signed by: Stanley Martinez M.D. 09/13/2020 5:57 PM ECG Rhythm: normal sinus Change: no significant change Supervising Physician Co-Signing Physician Notes Care coordinated with Arlene Vasquez PA-C. Agree with above note. Patient seen and examined. Please refer to her notes for full details. Vital signs reviewed. Physical exam: General exam: Alert and oriented. Not in acute distress. CVS: S1 and S2 heard, regular rate and rhythm, no murmurs. RS: Clear to auscultation, no wheezing or crackles. ABD: Soft, bowel sounds present, nontender, no distention. CARE INFORMATION ASSOCIATE: Nonfocal. EXT: No edema, no erythema. Labs: Reviewed. Assessment and plan: 45f presents with chest pain radiating to left shoulder. Somewhat relived by nitro and morphine but still has some chest pain. Chest pain hx of aortic dissection s/p repair CTA chest and CTA abd/plevis- no acute findings ekg and troponin unremarkable will place on nitro paste follow serial CE and echo cardio consult in am monitor in tele AAA 3.4 x 3.1 cm needs followup. Other diagnosis and plan of care as per Arlene Vasquez PA-C . Lucho young MD.
[2020-09-13] MEDS ORDERED: NITROGLYCERIN SL 0.4 MG/TAB TAB SL PRN (20:26)
[2020-09-13] MEDS ORDERED: DOCUSATE SODIUM 100 MG CAP PO PRN (20:26)
[2020-09-13] MEDS ORDERED: POLYETHYLENE (MIRALAX) 17 GM PACK PO PRN (20:26)
[2020-09-13] MEDS ORDERED: ACETAMINOPHEN 325 MG TAB PO PRN (20:26)
[2020-09-13] MEDS ORDERED: hydrOXYzine HCl 25 MG TAB PO PRN (20:26)
[2020-09-13] MEDS ORDERED: ONDANSETRON INJ 2 MG/ML 2 ML VIAL IV PRN (20:26)
[2020-09-13] MEDS: AMIODARONE 200 MG TAB PO SCH (21:47)
[2020-09-13] MEDS: METOPROLOL TARTRATE 100 MG TAB PO SCH (21:48)
[2020-09-13] MEDS ORDERED: SERTRALINE HCL 100 MG TABLET PO STA (21:58)
[2020-09-13] MEDS: levETIRAcetam 500 MG TAB PO SCH (22:27)
[2020-09-13] MEDS: NITROGLYCERIN 2% OINTMENT 30GM TUBE EXT SCH (22:27)
[2020-09-14] MEDS: NITROGLYCERIN 2% OINTMENT 30GM TUBE EXT SCH ×3 (04:43→15:35)
[2020-09-14 05:58] LABS: Hematocrit (blood only) 37.7 % (37-47); Hemoglobin 12.8 g/dL (12.0-16.0); Mean Corpuscular Hemoglobin 30.5 pg (25-34); Mean Corpuscular Volume 89.8 fL (80-100); Mean Platelet Volume 9.2 fL (7.4-10.4); Platelet Count 189 K/uL (130-400); RDW Coefficient of Variation 14.8 % (11.5-14.5); RDW Standard Deviation 48.4 fL (36.4-46.3); White Blood Count 4.94 K/uL (4.8-10.8)
[2020-09-14 06:15] LABS: INR 3.7 (0.9-1.1); Prothrombin Time 33.6 Seconds (9.0-12.0)
[2020-09-14] MEDS ORDERED: LEVOTHYROXINE SODIUM 75 MCG TABLET PO SCH (06:30)
[2020-09-14 06:35] LABS: BUN Creatinine Ratio 16.5 (10-20); Blood Urea Nitrogen 15 mg/dl (7-18); Calcium 8.9 mg/dl (8.5-10.1); Carbon Dioxide 28 mmol/L (21-32); Chloride 108 mmol/L (98-107); Est GFR (African American) 88.9 ml/min; Est GFR (Non-African American) 76.7 ml/min; Glucose 100 mg/dl (70-99); Potassium 3.5 mmol/L (3.5-5.1); Sodium 138 mmol/L (136-145)
[2020-09-14 06:40] LABS: Troponin I < 0.015 ng/ml (0-0.045)
[2020-09-14] MEDS: levETIRAcetam 500 MG TAB PO SCH (08:05)
[2020-09-14] MEDS: AMIODARONE 200 MG TAB PO SCH (08:05)
[2020-09-14] MEDS: METOPROLOL TARTRATE 100 MG TAB PO SCH (08:07)
[2020-09-14] MEDS ORDERED: CHOLECALCIFEROL 1,000 UNITS 25 MCG TAB PO SCH (09:00)
[2020-09-14] MEDS ORDERED: ASCORBIC ACID 500 MG TAB PO SCH (09:00)
[2020-09-14] MEDS ORDERED: FUROSEMIDE 40 MG TAB PO SCH (09:00)
[2020-09-14] MEDS ORDERED: SERTRALINE HCL 100 MG TABLET PO SCH (09:00)
[2020-09-14] MEDS ORDERED: POTASSIUM CHLORIDE 10 MEQ TABCR PO SCH (09:00)
[2020-09-14] MEDS ORDERED: ROSUVASTATIN CALCIUM 20 MG TAB PO SCH (09:00)
[2020-09-14] MEDS ORDERED: PANTOprazole 40 MG TAB PO SCH (09:00)
[2020-09-14] MEDS ORDERED: MULTIVITAMIN TAB PO SCH (09:00)
[2020-09-14] MEDS ORDERED: PERFLUTREN LIPID MICROSPHERE (DEFINITY) IV ONE (13:21)
--- NOTE | 2020-09-14 15:06 | Cardiology Consultation ---
Date of Consultation September 14, 2020 Assessment & Plan (1) Atypical chest pain: Patient is a complex 45-year-old female with longstanding history of intermittent chest discomfort with known vascular disease and valvular disease as outlined above. She presents now with chest pain without discerning evidence of myocardial ischemia by EKG and enzyme criteria. Patient underwent low-level stress testing to 4 minutes on a Kenn protocol (stage I only) with patient stopping secondary to fatigue and blunted heart rate response to exercise. No ischemia by EKG or echocardiogram at limited heart rate achieved. Diagnostic cardiac catheterizations without obstructive disease 2014 and 2017 Findings do not suggest acute coronary syndrome or angina pectoris. Plan: We'll reduce amiodarone to 200 mg once per day. Patient to keep appointment with Dr. Miranda as scheduled in 2 days. Event monitor to be placed at that time. All other medications to be continued as ordered. Recommend Covid vaccination (2) History of aortic dissection: (3) H/O aortic valve replacement: (4) S/P TAVR (transcatheter aortic valve replacement): History of Present Illness Reason for Consultation: Chest pressure pain Requesting Physician: Dr. 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 April 14, 2003 aortic valve replacement with a 23 mm Romeo-Pineda valve and PFO closure by Dr. Mondragon 4. August 13, 2006 Type 1 aortic dissection with intrathoracic rupture requiring re-operation and repair of the ascending aortic dissection with hypothermic circulatory arrest by Dr. Eubanks with residual type B descending thoracic aortic dissection, longstanding chest pain and chest discomfort 5. Cardiac Catheterization in November 2014, at [place], revealed normal coronary arteries. 6. 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 7. On June 01, 2017 transcatheter aortic valve replacement with a 23 mm Pineda Percy [address] [id number] Vargas and Dr. Vasquez at [facility] without complication. (TAVR) 8. Atrial arrhythmias including PSVT, atrial fibrillation, and atrial flutter with initiation of amiodarone therapy July 2020 Prior QTc prolongation on sotalol 9. Chronic coumadin anticoagulation 10. Hypertension 11. Anterior mediastinal mass 12. Anterior pituitary hyperfunction with hyperprolactinemia 13. October 2009 PE while using NuvaRing Contraceptive 14. Chronic kidney disease. 15. 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 16. Status post January 2019 partial right nephrectomy 17. Hypothyroidism 18. Esophagitis 19. GERD 20. Obesity 21. Depression. Patient presents today noting having developed pressure sensation on her chest wall sitting in the couch at home. Symptoms were persistent and patient presented to emergency room for further evaluation. She had noted occasional palpitations but no sense of tachyarrhythmias. No dizziness lightness syncope or near syncope. Symptoms gradually eased with nitroglycerin in the ER but no abrupt response. Initial enzymes and EKGs and serial EKGs without evidence of myocardial injury or ischemia. Patient with low-grade chest discomfort chronically and present this morning. Appetite and weight have been stable. No fevers chills or unexplained infections. Recent clinical history is notable for the addition of amiodarone for tachypalpitations paroxysmal atrial tachycardia 7 weeks ago Allergies Allergy/AdvReac Type Severity Reaction Status Date / Time Sulfa (Sulfonamide Allergy Severe ANAPHYLAXIS Verified 09/13/20 19:03 Antibiotics) aloe Allergy Unknown ITCHY AND Verified 09/13/20 19:03 HIVES Cipro AdvReac Intermediate siezure Verified 10/22/15 03:56 ciprofloxacin AdvReac Intermediate siezure Verified 09/13/20 19:03 Home Medications Medication Instructions Recorded Confirmed Type cholecalciferol (vitamin D3) 1,000 unit PO QAM 11/13/18 09/13/20 History [Vitamin D3] levothyroxine 75 mcg PO DAILYBB 11/13/18 09/13/20 History metoprolol tartrate 100 mg PO BID 11/13/18 09/13/20 History multivitamin 1 tab PO QAM 11/13/18 09/13/20 History omeprazole 20 mg PO QAM 11/13/18 09/13/20 History potassium chloride [Klor-Con 10] 10 meq PO QAM 11/13/18 09/13/20 History rosuvastatin 20 mg PO QAM 11/13/18 09/13/20 History ascorbic acid (vitamin C) 250 mg PO QAM 04/23/19 09/13/20 History furosemide 40 mg PO QAM 04/23/19 09/13/20 History hydroxyzine HCl 25 mg PO TID PRN 04/23/19 09/13/20 History Keppra 1,000 mg PO BID 09/13/20 09/13/20 History amiodarone [Pacerone] 200 mg PO BID 09/13/20 09/13/20 History docusate sodium [Colace] 100 mg PO BID PRN 09/13/20 09/13/20 History sertraline 200 mg PO DAILY 09/13/20 09/13/20 History warfarin [Jantoven] 2.5 mg PO DAILY@1600 09/13/20 09/13/20 History Patient History Medical History AAA (abdominal aortic aneurysm) Allergic reaction Atrial fibrillation Chronic diastolic (congestive) heart failure CKD (chronic kidney disease), stage III Endometriosis GERD (gastroesophageal reflux disease) Hyperprolactinoma Hypothyroidism Tuberous sclerosis Surgical History H/O aortic valve replacement H/O eye surgery 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 H/O partial nephrectomy History of aortic dissection Hx of tubal ligation S/P appendectomy S/P cholecystectomy S/P tonsillectomy and adenoidectomy Family History Other Hypertension Ovarian cancer Tuberous sclerosis Social History Smoking Status: Never smoker Hx Alcohol Use: No Hx Substance Use: No Preferred Language: Korean Communication Ability: Effective Beliefs That Will Affect Care: None Current Living Situation: Significant Other Current Living Situation Comment: lives with boyfriend Other Information That Helps Us Care for You: Yes (son in 2018) Feels Safe at Home: Yes Safety Concerns: Feels Safe At This Time Assistive Devices: Denture - Upper and Glasses Physical Exam Constitutional: WD/WN, vitals as above + morbidly obese Eyes: + eyes dysmorphic ENMT: external ear and nose normal, oropharynx normal Neck: trachea midline, no thyromegaly + thick neck Respiratory: normal respiratory effort, lungs clear to auscultation Cardiovascular: Rate/Rhythm: regular rate and regular rhythm Heart Sounds: normal S1, normal S2 and + murmur (Grade 2/6 systolic with preserved S2); no gallop Palpation: normal PMI Vessels: normal carotid upstroke and radial pulses present; no JVD and no carotid bruit Extremities: no edema Gastrointestinal (Abdomen): normal bowel sounds, soft, nontender, no hepatosplenomegaly Musculoskeletal: no cyanosis or clubbing, extremities motor strength 5/5 Skin: no rashes, warm and dry Neurologic: PERRL, EOMI, accommodation nl, no face palsy, no dysarthria Psychiatric: A+Ox3, euthymic affect Results & Data ([facility]) Vital Signs (Past 12 Hours) Vital Signs Temp Pulse Pulse Resp BP Pulse Ox 09/14/20 11:57 36.5 C 56 L 21 131/73 92 09/14/20 07:45 36.6 C 54 L 19 122/71 92 09/14/20 07:24 51 L 09/14/20 03:32 36.7 C 56 L 19 107/56 L 92 Laboratory Results Laboratory Results - last 24 hr 09/13/20 09/13/20 09/13/20 16:57 16:57 16:57 WBC 5.02 RBC 4.46 Hgb 13.8 Hct 40.0 MCV 89.7 MCH 30.9 MCHC 34.5 RDW Std Deviation 47.8 H RDW Coeff of Leroy 14.5 Plt Count 205 MPV 9.4 Immature Gran % (Auto) 0.2 Neut % (Auto) 52.0 Lymph % (Auto) 38.2 Dundy % (Auto) 7.4 Eos % (Auto) 1.6 Baso % (Auto) 0.6 Neut # (Auto) 2.61 Lymph # (Auto) 1.92 Dundy # (Auto) 0.37 Eos # (Auto) 0.08 Baso # (Auto) 0.03 Immature Gran # (Auto) 0.01 PT 27.7 H INR 3.0 H APTT 45.4 H* PTT Ratio 1.7 Sodium 140 Potassium 3.4 L Chloride 106 Carbon Dioxide 28 Anion Gap 6.0 BUN 16 Creatinine 1.12 Est Cr Clr Drug Dosing 91.3 Est GFR ( Amer) 69.2 Est GFR (Non-Af Amer) 59.7 BUN/Creatinine Ratio 14.2 Glucose 89 Calcium 9.2 Total Bilirubin 0.4 AST 12 L ALT 18 Alkaline Phosphatase 89 Troponin I < 0.015 Total Protein 7.3 Albumin 3.9 Globulin 3.4 Albumin/Globulin Ratio 1.1 Lipase 212 COVID-19 Eval Order SARS-CoV-2 (PCR) 09/13/20 09/13/20 09/13/20 17:30 17:30 22:54 WBC RBC Hgb Hct MCV MCH MCHC RDW Std Deviation RDW Coeff of Leroy Plt Count MPV Immature Gran % (Auto) Neut % (Auto) Lymph % (Auto) Dundy % (Auto) Eos % (Auto) Baso % (Auto) Neut # (Auto) Lymph # (Auto) Dundy # (Auto) Eos # (Auto) Baso # (Auto) Immature Gran # (Auto) PT INR APTT PTT Ratio Sodium Potassium Chloride Carbon Dioxide Anion Gap BUN Creatinine Est Cr Clr Drug Dosing Est GFR ( Amer) Est GFR (Non-Af Amer) BUN/Creatinine Ratio Glucose Calcium Total Bilirubin AST ALT Alkaline Phosphatase Troponin I 0.016 Total Protein Albumin Globulin Albumin/Globulin Ratio Lipase COVID-19 Eval Order Covid19 at [facility] SARS-CoV-2 (PCR) NEGATIVE 09/14/20 09/14/20 09/14/20 05:28 05:28 05:28 WBC 4.94 RBC 4.20 Hgb 12.8 Hct 37.7 MCV 89.8 MCH 30.5 MCHC 34.0 RDW Std Deviation 48.4 H RDW Coeff of Leroy 14.8 H Plt Count 189 MPV 9.2 Immature Gran % (Auto) Neut % (Auto) Lymph % (Auto) Dundy % (Auto) Eos % (Auto) Baso % (Auto) Neut # (Auto) Lymph # (Auto) Dundy # (Auto) Eos # (Auto) Baso # (Auto) Immature Gran # (Auto) PT 33.6 H INR 3.7 H APTT PTT Ratio Sodium 138 Potassium 3.5 Chloride 108 H Carbon Dioxide 28 Anion Gap 2.0 L BUN 15 Creatinine 0.91 Est Cr Clr Drug Dosing 112.0 Est GFR ( Amer) 88.9 Est GFR (Non-Af Amer) 76.7 BUN/Creatinine Ratio 16.5 Glucose 100 H Calcium 8.9 Total Bilirubin AST ALT Alkaline Phosphatase Troponin I < 0.015 Total Protein Albumin Globulin Albumin/Globulin Ratio Lipase COVID-19 Eval Order SARS-CoV-2 (PCR) Diagnostic Findings Chest CTA 09/13/2020 IMPRESSION: 1. Postoperative change is again seen involving the aortic valve/aortic root. 2. There is unchanged appearance of a type B aortic dissection of the thoracic and abdominal aorta as detailed above when compared to prior studies. 3. There is no evidence of pulmonary embolus in the main, lobar, or segmental pulmonary arteries. 4. Unremarkable CT angiogram of the major branches of the abdominal aorta. 5. There is no airspace consolidation or pleural effusion. 6. No acute infectious or inflammatory findings identified in the abdomen or pelvis. 7. 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 8. Partial nephrectomy change is noted in both kidneys. 9. Cardiomegaly. ECG Additional Comments: 14-SEP-2020 04:50:54 [facility]-MEDICU ROUTINE RETRIEVAL Sinus bradycardia Nonspecific ST abnormality Prolonged QTc 494 Abnormal ECG When compared with ECG of 13-SEP-2020 21:42, No significant change was found
[2020-09-14] MEDS ORDERED: WARFARIN SOD 2.5 MG TAB PO SCH (16:00)
--- NOTE | 2020-09-14 17:33 | Discharge Summary ---
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 States she was watching TV earlier today when she developed heaviness on left- sided chest. Pain radiated up towards left shoulder and was worse when she ambulated to the restroom. Not associate with any shortness of breath, nausea or vomiting. Improved when given nitro by EMS in route to hospital. Also received 3 and 24 mg of aspirin. Also endorsing some palpitations intermittently since developing chest pain earlier today. Follows with CHRISTIANE Coronel for cardiology and Dr. Miranda for EP cardiology. 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 Last 2D echo from 03/08 showed EF 60-64%, left ventricular diastolic function is severely abnormal (grade III). Patient is status post valve in valve TAVR. Principal Diagnosis Chest pain Hx of coronary artery disease s/P TAVR ( transcatheter aortic valve replacement ) Afib Discharge Exam Physical exam: General: No acute distress, alert awake oriented x3 HEENT: PERRLA, EOMI, Heart: Regular S1-S2, no carotid bruit, no JVD, no lower extremity edema Lungs: Clear to auscultate, no wheeze or rales Abdomen: Soft nontender, no organomegaly Extremity: No cyanosis, no deformity, normal strength 5 out of 5 with upper and lower Neuro: No focal neurological deficit normal speech, normal visual field, Motor strength : normal both upper and lower extremity, sensation intact Psych: Alert awake oriented x3, normal affect Discharge Data Allergies Allergy/AdvReac Type Severity Reaction Status Date / Time Sulfa (Sulfonamide Allergy Severe ANAPHYLAXIS Verified 09/13/20 19:03 Antibiotics) aloe Allergy Unknown ITCHY AND Verified 09/13/20 19:03 HIVES Cipro AdvReac Intermediate siezure Verified 10/22/15 03:56 ciprofloxacin AdvReac Intermediate siezure Verified 09/13/20 19:03 Consultations 09/13/20 18:50 ED Decision to Admit Stat 09/13/20 20:26 Consult Cardiology Routine Ordered Studies 09/13/20 16:51 CT angio abdomen pelvis w con Stat CT angio chest dissec wo/w con Stat Hospital Course (1) Chest pain: This is a medically complex 45yo F with a PMH of type 1 aortic dissection with repair in 2006, "Type B" aortic dissection without change on CT scan in 2012, TAVR in 2018, atrial arrhythmias including PSVT, atrial fibrillation, and atrial flutter on anticoagulation, CKD III, h/o Tuberous sclerosis with partial L nephrectomy in 2016 and partial R nephrectomy in 2019 and other medical problems listed below who presents with chest pain starting earlier today. No further chest pain since admission, EKG without any ischemic change Chest CTA with unchanged appearance of a type B aortic dissection of the thoracic and abdominal aorta when compared to prior studies, no evidence of PE Patient input from cardiology, amiodarone dose decreased 200 mg daily, stable to be discharged home (2) Tuberous sclerosis: Follows with Dr. Barrett of neurology S/p partial L nephrectomy in 2016 and partial R nephrectomy in 2019 (3) History of aortic dissection: History of type 1 aortic dissection with repair in 2006, "Type B" aortic dissection without change on CT scan in 2012 Also presence of aneurysm of the distal descending abdominal aorta measuring 3.4 x 3.1 cm - will also need surveillance (4) CKD (chronic kidney disease), stage III: Renal function at baseline. Monitor with daily BMP (5) Chronic diastolic (congestive) heart failure: Appears euvolemic. Continue Lasix (6) Atrial fibrillation: Continue amiodarone, Lopressor BID Continue Coumadin for anticoagulation Daily INR (7) Hypothyroidism: Continue levothyroxine DVT Ppx: coumadin Code status: FULL PCP: Chandan Patient is discharged home today Total Time Total Time Spent Total Time Spent (In Minutes): 30 minutes Total Time Includes: Discharge Planning and Medication Reconciliation Discharge Plan Discharge Items Patient Disposition: Home - Self-Care Reason For Visit: CHEST PAIN Discharge Diagnosis: Chest pain Hx of coronary artery disease s/P TAVR ( transcatheter aortic valve replacement ) Afib Activity: Resume your previous activity Non-emergency contact: Primary Care Provider Call non-emergency contact if: you have any medication questions Follow-up/Referrals: Jana Miranda DO [Physician] - (Follow up with Dr Miranda as scheduled ) Carol Hawley DO [Primary Care Provider] - (Date & Time 09/22/2020 11:00 AM Provider Herber Fairbanks MD Department [facility] ) Diet: Heart Healthy Addtl Attending Provider Instructions: Please take all medications as instructed on discharge list below. It is recommended that you follow-up with your primary care physician within 1-2 weeks of hospital discharge to ensure you are still doing well. Please call if you have any questions or problems. You can reach a [facility] hospitalist on duty at [facility] 24 hours a day by calling [phone] Pending Studies at Discharge: No Stand-Alone Forms: My [facility], Smoking Cessation Medications and DC Order Prescriptions: Continued cholecalciferol (vitamin D3) [Vitamin D3] 1,000 unit Capsule 1,000 unit PO QAM RF: 0 levothyroxine 75 mcg Capsule 75 mcg PO DAILYBB RF: 0 multivitamin Tablet 1 tab PO QAM RF: 0 metoprolol tartrate 100 mg Tablet 100 mg PO BID RF: 0 omeprazole 20 mg Tablet,Delayed Release (Dr/Ec) 20 mg PO QAM RF: 0 potassium chloride [Klor-Con 10] 10 mEq Tablet Extended Release 10 meq PO QAM RF: 0 rosuvastatin 20 mg Tablet 20 mg PO QAM RF: 0 furosemide 40 mg tablet 40 mg PO QAM RF: 0 ascorbic acid (vitamin C) 250 mg tablet 250 mg PO QAM RF: 0 hydroxyzine HCl 25 mg tablet 25 mg PO TID PRN (Reason: Anxiety) RF: 0 warfarin [Jantoven] 5 mg tablet 2.5 mg PO DAILY@1600 RF: 0 docusate sodium [Colace] 100 mg capsule 100 mg PO BID PRN (Reason: Constipation) RF: 0 sertraline 100 mg tablet 200 mg PO DAILY RF: 0 Keppra 1,000 MG 1,000 mg PO BID RF: 0 Changed amiodarone [Pacerone] 200 mg tablet 200 mg PO DAILY Qty: 0 RF: 0 Discharge Orders: Discharge Order (Routine); Ordered 09/14/20 Ordered By: Lori Samuel Admission Data Admit Date/Time: 09/13/20 18:51 Attending Provider: oLri Samuel Admit Provider: Lucho Flores Primary Care Provider: Carol Hawley Other Providers: Lucho Flores ; Zack Mendez Other Interventions: Discharge Summary Assessment (RN) Last Done: 09/14/20 17:38
[2020-09-15] MEDS ORDERED: AMIODARONE 200 MG TAB PO SCH (09:00)
--- NOTE | 2020-09-15 11:14 | Electrocardiogram Report ---
Test Reason : Blood Pressure : / mmHG Vent. Rate : 065 BPM Atrial Rate : 065 BPM P-R Int : 160 ms QRS Dur : 094 ms QT Int : 458 ms P-R-T Axes : 020 045 062 degrees QTc Int : 476 ms Poor data quality, interpretation may be adversely affected Normal sinus rhythm Cannot rule out Anterior infarct (cited on or before 31-AUG-2015) Abnormal ECG When compared with ECG of 31-AUG-2015 23:23, No significant change was found Confirmed by Polo Kim ([id number]) on 09/15/2020 11:14:27 AM Referred By: REFERRED SELF Confirmed By:Polo Kim
--- NOTE | 2020-09-15 11:19 | Electrocardiogram Report ---
Test Reason : Blood Pressure : / mmHG Vent. Rate : 061 BPM Atrial Rate : 061 BPM P-R Int : 158 ms QRS Dur : 094 ms QT Int : 484 ms P-R-T Axes : 034 038 038 degrees QTc Int : 487 ms Normal sinus rhythm Nonspecific ST abnormality Abnormal ECG When compared with ECG of 13-SEP-2020 16:49, (unconfirmed) No significant change was found Confirmed by Polo Kim ([id number]) on 09/15/2020 11:18:39 AM Referred By: REFERRED SELF Confirmed By:Polo Kim
--- NOTE | 2020-09-15 11:21 | Electrocardiogram Report ---
Test Reason : Blood Pressure : / mmHG Vent. Rate : 057 BPM Atrial Rate : 057 BPM P-R Int : 162 ms QRS Dur : 104 ms QT Int : 508 ms P-R-T Axes : 025 043 047 degrees QTc Int : 494 ms Sinus bradycardia Nonspecific ST abnormality Prolonged QT Abnormal ECG When compared with ECG of 13-SEP-2020 21:42, (unconfirmed) No significant change was found Confirmed by Polo Kim ([id number]) on 09/15/2020 11:21:19 AM Referred By: REFERRED SELF Confirmed By:Polo Kim
== END 2020-09-14 18:00 | disposition home or self-care (01) ==
LOC: ED 16:39 → 2S 16:39 → SUATTDRO 18:51 → 2S 19:56

== ENCOUNTER 2022-03-30 13:47 | Observation (INO) ==
[2022-03-30 15:17] LABS: Basophils # (auto) 0.07 K/uL (0-0.2); Basophils % (auto) 1.3 %; Eosinophils # (auto) 0.11 K/uL (0-0.50); Immature Granulocytes # (auto) 0.03 K/uL (0.00-0.02); Immature Granulocytes % (auto) 0.5 %; Lymphocytes # (auto) 1.83 K/uL (1.2-3.4); Lymphocytes % (auto) 33.3 %; Mean Corpuscular Hemoglobin 30.4 pg (25.0-34.0); Mean Corpuscular Hgb Conc 34.1 g/dL (32.0-36.0); Mean Corpuscular Volume 89.2 fL (80.0-100.0); Mean Platelet Volume 10.3 fL (9.4-12.3); Monocytes # (auto) 0.43 K/uL (0.24-0.82); Monocytes % (auto) 7.8 %; Neutrophils # (auto) 3.03 K/uL (1.4-6.5); Neutrophils % (auto) 55.1 %; Platelet Count 228 K/uL (130-400); RDW Coefficient of Variation 14.6 % (11.5-14.5); RDW Standard Deviation 47.5 fL (36.4-46.3); Red Blood Count 4.93 M/uL (3.93-5.22)
--- NOTE | 2022-03-30 15:17 | Emergency Department Note ---
Impression & Plan Chest pain ED Provider Note INFORMANT: Patient ED PROVIDER(S): Gallo Sparks DO CHIEF COMPLAINT: Chest pain PLAN: Disposition: admission Condition: Good Outpatient prescription management: none Referral: I spoke with the hospitalist, who will see the patient for admission/observation and further evaluation and consultation. MEDICAL DECISION MAKING: This is a 46-year-old female who presents to the ED with a chief complaint of a sudden onset of left-sided chest tightness the patient reports a history of aortic valve that radiated to her back and left arm. It started around 1330 hrs. today while she was driving in the car. Lasted for about 20 minutes and then resolved. She states that it felt like her heart was racing. She became a little sweaty. Replacement and A. fib and is chronically on warfarin. Currently is not having any symptoms. She recently did have influenza a last week. Her vital signs are normal. Physical exam was unremarkable. She is in no distress. Her INR is elevated today at 7.4. CBC was normal. Chemistry panel was normal. No anemia. No leukocytosis. Lipase was negative. No pancreatitis. Troponin was elevated at 14.6. Second troponin was elevated at 15.0. Chest x-ray did not show any acute process. EKG showed a sinus bradycardia rate of 52 with PACs. No ischemic changes. The patient was told the results. Because of her troponin and symptoms, she will be seen by the hospitalist for further evaluation and care. Triage Nursing notes reviewed. Vital Signs: reviewed Prior /Outside records reviewed: none Differential diagnosis: The differential that was considered includes acute myocardial infarction, acute coronary syndrome, myocarditis, pericarditis, pericardial effusions /tamponade, thoracic aortic dissection, pulmonary embolism, pneumonia, pneumothorax Diagnostics, as interpreted by me: 12 lead ECG: Sinus bradycardia at a rate of 52. PACs. No ST elevation. Normal QTC. Cardiac Monitoring: Sinus rhythm in the 50-60 range. Medical decision rules: HEART SCORE moderate Imaging studies: Chest x-ray: No acute disease. No pneumonia or pneumothorax. Procedures: none. Critical care: none. HPI: This is a 46-year-old female who presents to the ED with a chief complaint of a sudden onset of left-sided chest tightness the patient reports a history of aortic valve that radiated to her back and left arm. It started around 1330 hrs. today while she was driving in the car. Lasted for about 20 minutes and then resolved. She states that it felt like her heart was racing. She became a little sweaty. Replacement and A. fib and is chronically on warfarin. PAST MEDICAL HISTORY: See Below PAST SURGICAL HISTORY: See Below SOCIAL HISTORY: See Below HOME MEDICATIONS: See Below ALLERGIES: See Below VITALS: See Below PHYSICAL EXAMINATION: CONSTITUTIONAL/VITAL SIGNS: Reviewed GENERAL: Non-toxic in appearance. INTEGUMENTARY: Warm, dry, and [place]. HEAD: Normocephalic. EYES: without scleral icterus. ENT/OROPHARYNX: clear and moist. RESPIRATORY: No increased work of breathing. Lungs clear. CARDIOVASCULAR: Regular rate. Regular rhythm. GI/ABDOMEN: Soft and nontender. . EXTREMITIES: Normal NEUROLOGICAL: Intact without focal deficits. PSYCHIATRIC: Normal affect. MUSCULOSKELETAL: Normal. TRIAGE NURSING DOCUMENTATION REVIEWED. 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 H/O partial nephrectomy History of aortic dissection Hx of tubal ligation S/P appendectomy S/P cholecystectomy S/P tonsillectomy and adenoidectomy Family History Other Hypertension Ovarian cancer Tuberous sclerosis Social History Smoking Status: Never smoker Hx Alcohol Use: No Hx Substance Use: No Preferred Language: Frisian Communication Ability: Effective Beliefs That Will Affect Care: None Current Living Situation: Significant Other Current Living Situation Comment: lives with boyfriend Feels Safe at Home: Yes Assistive Devices: Denture - Upper and Glasses Allergies Allergies Allergy/AdvReac Type Severity Reaction Status Date / Time Sulfa (Sulfonamide Allergy Severe ANAPHYLAXIS Verified 09/13/20 19:03 Antibiotics) aloe Allergy Unknown ITCHY AND Verified 09/13/20 19:03 HIVES Cipro AdvReac Intermediate [facility] Verified 10/22/15 03:56 ciprofloxacin AdvReac Intermediate [facility] Verified 09/13/20 19:03 Home Meds Home Medications Medication Instructions Recorded Confirmed cholecalciferol (vitamin D3) 25 1,000 unit PO QAM 11/13/18 09/13/20 mcg (1,000 unit) capsule (Vitamin D3) levothyroxine 75 mcg capsule 75 mcg PO DAILYBB 11/13/18 09/13/20 metoprolol tartrate 100 mg tablet 100 mg PO BID 11/13/18 09/13/20 multivitamin 1 tab PO QAM 11/13/18 09/13/20 omeprazole 20 mg tablet,delayed 20 mg PO QAM 11/13/18 09/13/20 release potassium chloride 10 mEq 10 meq PO QAM 11/13/18 09/13/20 tablet,extended release (Klor-Con) rosuvastatin 20 mg tablet 20 mg PO QAM 11/13/18 09/13/20 ascorbic acid (vitamin C) 250 mg 250 mg PO QAM 04/23/19 09/13/20 tablet furosemide 40 mg tablet 40 mg PO QAM 04/23/19 09/13/20 hydroxyzine HCl 25 mg tablet 25 mg PO TID PRN Anxiety 04/23/19 09/13/20 Keppra 1,000 mg PO BID 09/13/20 09/13/20 docusate sodium 100 mg capsule 100 mg PO BID PRN Constipation 09/13/20 09/13/20 (Colace) sertraline 100 mg tablet 200 mg PO DAILY 09/13/20 09/13/20 warfarin 5 mg tablet (Jantoven) 2.5 mg PO DAILY@1600 09/13/20 09/13/20 Previous Rx's Medication Instructions Recorded amiodarone 200 mg tablet (Pacerone) 200 mg PO DAILY #0 tabs 09/14/20 Results & Data (ED) Vital Signs Vital Signs - 24 hr 03/30/22 13:53 03/30/22 16:17 03/30/22 16:17 Temperature 36.5 C Temperature Source Temporal Artery Scan Pulse Rate 53 L Pulse Rate [Finger] 98 H Pulse Rhythm Respiratory Rate 18 20 Respiratory Effort / Characteristics Non-Labored Non-Labored Respiratory Depth Normal Normal Respiratory Pattern Regular Blood Pressure 132/79 Blood Pressure [Left Arm] 158/112 H Blood Pressure Mean 96 Blood Pressure Mean [Left Arm] 127 Blood Pressure Position Sitting Pulse Oximetry 98 98 98 Oxygen Delivery Method Room Air Room Air Room Air Sepsis Recent Fever Within 48 Hours No Sepsis New/Unexplained Change in Mental Status No Sepsis Action Taken by Nursing No Action Required 03/30/22 16:17 Temperature Temperature Source Pulse Rate 105 H Pulse Rate [Finger] Pulse Rhythm Regular Respiratory Rate 20 Respiratory Effort / Characteristics Respiratory Depth Respiratory Pattern Blood Pressure Blood Pressure [Left Arm] Blood Pressure Mean Blood Pressure Mean [Left Arm] Blood Pressure Position Pulse Oximetry 98 Oxygen Delivery Method Room Air Sepsis Recent Fever Within 48 Hours Sepsis New/Unexplained Change in Mental Status Sepsis Action Taken by Nursing Laboratory Data 03/30/22 14:22 03/30/22 14:22 Lab Results 03/30/22 03/30/22 03/30/22 Range/Units 14:22 14:22 14:22 WBC 5.50 (4.8-10.8) K/ul RBC 4.93 (3.93-5.22) M/uL Hgb 15.0 (12.0-16.0) g/dl Hct 44.0 (34.1-44.9) % MCV 89.2 (80.0-100.0) fL MCH 30.4 (25.0-34.0) pg MCHC 34.1 (32.0-36.0) g/dL RDW Std Deviation 47.5 H (36.4-46.3) fL RDW Coeff of Leroy 14.6 H (11.5-14.5) % Plt Count 228 (130-400) K/uL MPV 10.3 (9.4-12.3) fL Immature Gran % (Auto) 0.5 % Neut % (Auto) 55.1 % Lymph % (Auto) 33.3 % [place] % (Auto) 7.8 % Eos % (Auto) 2.0 % Baso % (Auto) 1.3 % Neut # (Auto) 3.03 (1.4-6.5) K/uL Lymph # (Auto) 1.83 (1.2-3.4) K/uL [place] # (Auto) 0.43 (0.24-0.82) K/uL Eos # (Auto) 0.11 (0-0.50) K/uL Baso # (Auto) 0.07 (0-0.2) K/uL Immature Gran # (Auto) 0.03 H (0.00-0.02) K/uL PT 70.9 H (9.0-12.0) Seconds INR 7.4 H* (0.9-1.1) Sodium 139 (136-145) mmol/L Potassium 3.7 (3.5-5.1) mmol/L Chloride 106 (98-107) mmol/L Carbon Dioxide 24 (21-32) mmol/L Anion Gap 9 (3-11) BUN 23 (6-23) mg/dl Creatinine 1.31 H (0.6-1.2) mg/dl Est Cr Clr Drug Dosing Not Reportable Est GFR ( Amer) 56.8 ml/min Est GFR (Non-Af Amer) 49.0 ml/min BUN/Creatinine Ratio 17.6 (10-20) Glucose 89 (70-99(Fasting)) mg/dl Calcium 9.4 (8.5-10.1) mg/dl Total Bilirubin 0.5 (0.2-1.0) mg/dl AST 20 (13-39) U/L ALT 18 (7-52) U/L Alkaline Phosphatase 76 (34-104) U/L Troponin I High Sens 14.6 H (0-14) pg/ml Total Protein 7.7 (6.0-8.3) gm/dl Albumin 4.4 (3.4-5.0) gm/dl Globulin 3.3 (2.5-4.0) gm/dl Albumin/Globulin Ratio 1.3 (0.9-2) Lipase 59 (11-82) U/L 03/30/22 Range/Units 16:38 WBC (4.8-10.8) K/ul RBC (3.93-5.22) M/uL Hgb (12.0-16.0) g/dl Hct (34.1-44.9) % MCV (80.0-100.0) fL MCH (25.0-34.0) pg MCHC (32.0-36.0) g/dL RDW Std Deviation (36.4-46.3) fL RDW Coeff of Leroy (11.5-14.5) % Plt Count (130-400) K/uL MPV (9.4-12.3) fL Immature Gran % (Auto) % Neut % (Auto) % Lymph % (Auto) % [place] % (Auto) % Eos % (Auto) % Baso % (Auto) % Neut # (Auto) (1.4-6.5) K/uL Lymph # (Auto) (1.2-3.4) K/uL [place] # (Auto) (0.24-0.82) K/uL Eos # (Auto) (0-0.50) K/uL Baso # (Auto) (0-0.2) K/uL Immature Gran # (Auto) (0.00-0.02) K/uL PT (9.0-12.0) Seconds INR (0.9-1.1) Sodium (136-145) mmol/L Potassium (3.5-5.1) mmol/L Chloride (98-107) mmol/L Carbon Dioxide (21-32) mmol/L Anion Gap (3-11) BUN (6-23) mg/dl Creatinine (0.6-1.2) mg/dl Est Cr Clr Drug Dosing Est GFR ( Amer) ml/min Est GFR (Non-Af Amer) ml/min BUN/Creatinine Ratio (10-20) Glucose (70-99(Fasting)) mg/dl Calcium (8.5-10.1) mg/dl Total Bilirubin (0.2-1.0) mg/dl AST (13-39) U/L ALT (7-52) U/L Alkaline Phosphatase (34-104) U/L Troponin I High Sens 15.0 H (0-14) pg/ml Total Protein (6.0-8.3) gm/dl Albumin (3.4-5.0) gm/dl Globulin (2.5-4.0) gm/dl Albumin/Globulin Ratio (0.9-2) Lipase (11-82) U/L Imaging Data Radiologist's Impression: Chest X-Ray 03/30/22 15:07 XR chest 2V PA/lateral HISTORY: Mid chest pain. Chest pain, nonspecific COMPARISON: Chest 03/21/2022. FINDINGS: No pneumothorax. No pleural effusions. Slight elevation of the right hemidiaphragm. The heart remains borderline enlarged. The lungs are clear. Surgical clips overlying the right upper chest again noted. Surgical clips seen within the upper abdomen. Postoperative changes and an aortic valve prosthesis. IMPRESSION: No significant change compared to the prior study. No acute process. ACT 112: Negative or not required by law. Electronically signed by: Hood Domingo M.D. 03/30/2022 4:30 PM Discharge Plan Visit Data Chief Complaint: Chest Pain Stated Complaint: CHEST PAIN, PAIN LEFT ARM, ED Provider: Gallo Sparks Discharge Problem: Chest pain Patient Disposition: Being Evaluated by Hospitalist Forms Stand Alone Forms: My [facility] Prescriptions Prescriptions: No Action cholecalciferol (vitamin D3) [Vitamin D3] 1,000 unit Capsule 1,000 unit PO QAM levothyroxine 75 mcg Capsule 75 mcg PO DAILYBB multivitamin Tablet 1 tab PO QAM metoprolol tartrate 100 mg Tablet 100 mg PO BID omeprazole 20 mg Tablet,Delayed Release (Dr/Ec) 20 mg PO QAM potassium chloride [Klor-Con 10] 10 mEq Tablet Extended Release 10 meq PO QAM rosuvastatin 20 mg Tablet 20 mg PO QAM furosemide 40 mg tablet 40 mg PO QAM ascorbic acid (vitamin C) 250 mg tablet 250 mg PO QAM hydroxyzine HCl 25 mg tablet 25 mg PO TID PRN (Reason: Anxiety) warfarin [Jantoven] 5 mg tablet 2.5 mg PO DAILY@1600 docusate sodium [Colace] 100 mg capsule 100 mg PO BID PRN (Reason: Constipation) sertraline 100 mg tablet 200 mg PO DAILY Keppra 1,000 MG 1,000 mg PO BID amiodarone [Pacerone] 200 mg tablet 200 mg PO DAILY Qty: 0 0RF Referrals Referrals: Yasmin Lynn MD [Primary Care Provider] -
[2022-03-30 15:29] LABS: Alanine Aminotransferase 18 U/L (7-52); Albumin Globulin Ratio 1.3 (0.9-2); Albumin Level 4.4 gm/dl (3.4-5.0); Alkaline Phosphatase 76 U/L (34-104); Anion Gap 9 (3-11); Aspartate Aminotransferase 20 U/L (13-39); BUN Creatinine Ratio 17.6 (10-20); Bilirubin,Total 0.5 mg/dl (0.2-1.0); Blood Urea Nitrogen 23 mg/dl (6-23); Calcium 9.4 mg/dl (8.5-10.1); Carbon Dioxide 24 mmol/L (21-32); Chloride 106 mmol/L (98-107); Est GFR (African American) 56.8 ml/min; Globulin 3.3 gm/dl (2.5-4.0); Glucose 89 mg/dl (70-99(Fasting)); Lipase 59 U/L (11-82); Potassium 3.7 mmol/L (3.5-5.1); Sodium 139 mmol/L (136-145); Total Protein 7.7 gm/dl (6.0-8.3)
[2022-03-30 15:34] LABS: Troponin I High Sensitivity 14.6 pg/ml (0-14)
[2022-03-30 16:14] LABS: INR 7.4 (0.9-1.1); Prothrombin Time 70.9 Seconds (9.0-12.0)
--- NOTE | 2022-03-30 16:33 | XRay Report ---
XR chest 2V PA/lateral HISTORY: Mid chest pain. Chest pain, nonspecific COMPARISON: Chest 03/21/2022. FINDINGS: No pneumothorax. No pleural effusions. Slight elevation of the right hemidiaphragm. The hea rt remains borderline enlarged. The lungs are clear. Surgical clips overlying the right upper chest a gain noted. Surgical clips seen within the upper abdomen. Postoperative changes and an aortic valve p rosthesis. IMPRESSION: No significant change compared to the prior study. No acute process. ACT 112: Negative or not required by law. Electronically signed by: Hood Domingo M.D. 03/30/2022 4:30 PM
--- NOTE | 2022-03-30 18:27 | History & Physical Report ---
Date of Service March 30, 2022 Assessment & Plan (1) Chest pain: Plan: Patient is 46 y/o F with PMH aortic dissection with repair in 2006, "Type B" aortic dissection, TAVR in 2018, atrial arrhythmias including PSVT, atrial fibrillation, and atrial flutter anticoagulated on warfarin, CKD III, h/o tuberous sclerosis with partial L nephrectomy in 2016 and partial R nephrectomy in 2019 and other medical problems listed below presented to ER with c/o CP and palpitations today. In ER afebrile, initial P: 53, BP 132/79, 98% on room air. Repeat BP: 148/113 on left arm, 135/103 and right arm Initial troponin: 14.6 -->15 Initial EKG with sinus bradycardia, PACs, T wave flattening anterior, lateral, inferior leads CXR: No acute process CTA chest: No acute findings within the chest. Stable postoperative findings involving the aortic valve and aortic root. Stable appearance of the aortic dissection since CTA of September 13, 2020. DDX: Afib with RVR, hypertensive emergency, ACS Denies current chest pain History stress echo 09/15/2020: Achieved 80% age-predicted maximum heart rate, reported patient had chest pain throughout entire study and in recovery, no stress-induced EKG changes. No wall motion abnormalities noted History cardiac cath 2018 without obstructive disease Monitor on telemetry TSH, magnesium labs pending Trend troponin Echo Continue metoprolol tartrate May need to add further medication for blood pressure control Lipid panel in am Cardiology consult (2) Supratherapeutic INR: (3) Atrial fibrillation: Plan: History paroxysmal atrial fibrillation anticoagulated with warfarin Atrial fibrillation. Current rate controlled at 98. Initially sinus bradycardia in 50's in ER. INR: 7.4 Continue amiodarone, metoprolol tartrate Hold warfarin INR in a.m. (4) History of aortic dissection: Plan: History aortic dissection with repair in 2006, "Type B" aortic dissection CTA Chest: No acute findings within the chest. Stable postoperative findings involving the aortic valve and aortic root. Stable appearance of the aortic dissection since CTA of September 13, 2020. Will need continued surveillance (5) S/P TAVR (transcatheter aortic valve replacement): Plan: TAVR in 2018 (6) Chronic diastolic (congestive) heart failure: Plan: Appears euvolemic Hold Lasix tomorrow has received IV contrast (7) AAA (abdominal aortic aneurysm): Plan: Outpatient chart review: 10/20/21: CT abd/pelvis: No significant change in appearance of the aortic dissection since CT of September 13, 2020. Stable aneurysmal dilatation of the infrarenal abdominal aorta, measuring 3.[address] abdomen pelvis: 1. No acute process within the abdomen or pelvis. 2. Stable appearance of the aortic dissection since prior CTA. Stable aneurysmal dilatation of the infrarenal abdominal aorta, measuring 3.6 cm. No rupture. 3. No change in a small amount of fluid within the pelvis. 4. No bowel obstruction. No bowel wall thickening. Will need continued surveillance (8) CKD (chronic kidney disease), stage III: Plan: Cr: 1.3. Baseline 1.2 Monitor renal functions (9) Tuberous sclerosis: Plan: S/p partial L nephrectomy in 2016 and partial R nephrectomy in [address] Barrett of neurology (10) Hypothyroidism: Plan: TSH pending Continue levothyroxine DVT Prophylaxis Anticoagulated on warfarin. INR 7.4. Fall code as per discussion with pt Follows with Dr Yasmin Lynn in [place] for routine care Pt was seen and care coordinated with Dr Sotelo. See addendum I spent total of 85 minutes of reviewing notes, outpatient records, labs, medications, coordinating, documenting, and providing care for this patient excluding time spent in the performance of separately billed services. History of Present Illness Chief Complaint: CP Primary Care Provider: Yasmin Lynn MD Patient is 46 y/o F with PMH aortic dissection with repair in 2006, "Type B" aortic dissection, TAVR in 2018, atrial arrhythmias including PSVT, atrial fibrillation, and atrial flutter on anticoagulation, CKD III, h/o tuberous sclerosis with partial L nephrectomy in 2016 and partial R nephrectomy in 2019 and other medical problems listed below presented to ER with c/o CP today. Lizabeth ent states was driving in car when started feeling tight clenching feeling that started in anterior chest radiated to left ribs and then back. Tingling to left arm. Also reports sweats, nausea without vomiting. [place] a little SOB and had palpitations. CP much improved and initially resolved however still having intermittent episodes of chest heaviness and palpitations while in ER. No prior treatment. Reports palpitations and dizziness at least once a day chronically and usually just rests and sympotms improve. Recent history URI symptoms and tested positive for influenza A on 03/21/22 and was in a-fib at that ER visit. States cough, sore throat, congestion have resolved. Denies fever/chills, diaphoresis, V/D/C, SAM, syncope, vision changes, neck pain, orthopnea, choking, otalgia, rhinorrhea, abdominal pain, extremity weakness, extremity edema, rashes, urinary symptoms. Denies missed medications. Outpatient chart review: 10/20/21: CT abd/pelvis: No significant change in appearance of the aortic dissection since CT of September 13, 2020. Stable aneurysmal dilatation of the infrarenal abdominal aorta, measuring 3.6 x 3.1 cm History stress echo 09/15/2020: Achieved 80% age-predicted maximum heart rate, reported patient had chest pain throughout entire study and in recovery, no stress-induced EKG changes. No wall motion abnormalities noted Cardiac cath 2017 without obstructive disease Follows with Ian Paulson PA-C Allergies Allergy/AdvReac Type Severity Reaction Status Date / Time Sulfa (Sulfonamide Allergy Severe ANAPHYLAXIS Verified 09/13/20 19:03 Antibiotics) aloe Allergy Unknown ITCHY AND Verified 09/13/20 19:03 HIVES Cipro AdvReac Intermediate siezure Verified 10/22/15 03:56 ciprofloxacin AdvReac Intermediate siezure Verified 09/13/20 19:03 Home Medications Medication Instructions Recorded Confirmed Type cholecalciferol (vitamin D3) 25 1,000 unit PO QAM 11/13/18 03/30/22 History mcg (1,000 unit) capsule (Vitamin D3) levothyroxine 75 mcg capsule 75 mcg PO DAILYBB 11/13/18 03/30/22 History multivitamin 1 tab PO QAM 11/13/18 03/30/22 History omeprazole 20 mg tablet,delayed 20 mg PO QAM 11/13/18 03/30/22 History release potassium chloride 10 mEq 10 meq PO QAM 11/13/18 03/30/22 History tablet,extended release (Klor-Con) rosuvastatin 20 mg tablet 20 mg PO DAILY 11/13/18 03/30/22 History ascorbic acid (vitamin C) 250 mg 250 mg PO QAM 04/23/19 03/30/22 History tablet furosemide 40 mg tablet 40 mg PO QAM 04/23/19 03/30/22 History hydroxyzine HCl 25 mg tablet 25 mg PO TID PRN Anxiety 04/23/19 03/30/22 History docusate sodium 100 mg capsule 100 mg PO BID PRN Constipation 09/13/20 03/30/22 History (Colace) sertraline 100 mg tablet 200 mg PO DAILY 09/13/20 03/30/22 History amiodarone 200 mg tablet (Pacerone) 200 mg PO DAILY #0 tabs 09/14/20 03/30/22 Rx buspirone 5 mg tablet 5 mg PO TID PRN Anxiety 03/30/22 03/30/22 History iron,carbonyl 65 mg-vitamin C 125 1 tab PO BID 03/30/22 03/30/22 History mg tablet,delayed release (Vitron-C) levetiracetam 1,000 mg tablet 1,000 mg PO BID 03/30/22 03/30/22 History (Keppra) magnesium oxide 400 mg PO DAILY 03/30/22 03/30/22 History metoprolol tartrate 50 mg tablet 75 mg PO BID 03/30/22 03/30/22 History warfarin 2.5 mg tablet 1.25 mg PO 5XWK 03/30/22 03/30/22 History warfarin 2.5 mg tablet 2.5 mg PO 2XWK 03/30/22 03/30/22 History 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 H/O partial nephrectomy History of aortic dissection Hx of tubal ligation S/P appendectomy S/P cholecystectomy S/P tonsillectomy and adenoidectomy Family History Other Hypertension Ovarian cancer Tuberous sclerosis Social History Smoking Status: Never smoker Hx Alcohol Use: No Hx Substance Use: No Preferred Language: [place] Communication Ability: Effective Beliefs That Will Affect Care: None Current Living Situation: Spouse Current Living Situation Comment: Marycruz Talley Feels Safe at Home: Yes Assistive Devices: Denture - Upper and Glasses Review of Systems Review of Systems: All systems reviewed & are unremarkable except as noted in HPI & below Physical Exam Physical Exam: General: no distress, obese Head: normocephalic, atraumatic Eyes: conjunctiva non-injected, anicteric ENT: normal inspection external ears, nose, mucous membranes moist Neck: supple, trachea midline Lungs: clear, no respiratory distress, no wheezing/rhonchi/rales CV: irregularly irregular rhythm, + systolic murmur, no pretibial edema Abd: normal BS, soft, non-tender Ext: no cyanosis, no calf tenderness Neuro: A&O x 3, no focal deficits noted, normal affect Skin: warm, dry Results & Data Results & Data ([facility]) Vital Signs (Past 12 Hours) Vital Signs Temp Pulse Pulse Resp BP BP Pulse Ox 03/30/22 16:17 105 H 20 98 03/30/22 16:17 98 H 20 158/112 H 98 03/30/22 16:17 98 03/30/22 13:53 36.5 C 53 L 18 132/79 98 O2 Del Method 03/30/22 16:17 Room Air 03/30/22 16:17 Room Air 03/30/22 16:17 Room Air 03/30/22 13:53 Room Air Laboratory Results Short CBC 03/30/22 Range/Units 14:22 WBC 5.50 (4.8-10.8) K/ul Hgb 15.0 (12.0-16.0) g/dl Hct 44.0 (34.1-44.9) % Plt Count 228 (130-400) K/uL BMP 03/30/22 14:22 Sodium 139 Potassium 3.7 Chloride 106 Carbon Dioxide 24 BUN 23 Creatinine 1.31 H Glucose 89 Calcium 9.4 Liver Function 03/30/22 Range/Units 14:22 Total Bilirubin 0.5 (0.2-1.0) mg/dl AST 20 (13-39) U/L ALT 18 (7-52) U/L Alkaline Phosphatase 76 (34-104) U/L Albumin 4.4 (3.4-5.0) gm/dl Diagnostic Findings Chest X-Ray 03/30/22 15:07 XR chest 2V PA/lateral HISTORY: Mid chest pain. Chest pain, nonspecific COMPARISON: Chest 03/21/2022. FINDINGS: No pneumothorax. No pleural effusions. Slight elevation of the right hemidiaphragm. The heart remains borderline enlarged. The lungs are clear. Surgical clips overlying the right upper chest again noted. Surgical clips seen within the upper abdomen. Postoperative changes and an aortic valve prosthesis. IMPRESSION: No significant change compared to the prior study. No acute process. ACT 112: Negative or not required by law. Electronically signed by: Hood Domnigo M.D. 03/30/2022 4:30 PM Chest CTA 03/30/22 18:41 CT ANGIOGRAPHY OF THE CHEST DISSECTION PROTOCOL CLINICAL HISTORY: Left-sided chest pain radiating to back. Evaluate for dissection. COMPARISON STUDY: CTA of the chest September 13, 2020 and chest radiograph performed earlier today. TECHNIQUE: Before and following the IV administration of 110 mL of Optiray, helical axial images of the chest were obtained. Maximal intensity projections and sagittal and coronal reformats were viewed on an independent 3D workstation. IV contrast was administered without complication. Automated exposure control was utilized for the study. A dose lowering technique was utilized adhering to the principles of ALARA. FINDINGS: There are stable postoperative findings involving the aortic valve and aortic root. No pericardial effusion is noted. Cardiomegaly is unchanged. There is no pneumothorax or pleural effusion. There are no pulmonary emboli. The appearance of the chronic aortic dissection beginning within the proximal descending thoracic aorta is similar to prior CT. Preferential opacification of the true lumen is noted. However, the false lumen is opacified. Mild dilatation, measuring 3.4 cm at the level of the proximal descending thoracic aorta is unchanged. There is no evidence for rupture. No consolidation is present. A few small pulmonary nodules are unchanged from earlier exams. These are benign. CTA of the abdomen and pelvis will be reported separately. There are no acute fractu res. IMPRESSION: 1. No acute findings within the chest. 2. Stable postoperative findings involving the aortic valve and aortic root. Stable appearance of the aortic dissection since CTA of September 13, 2020. ACT 112: Negative or not required by law. Electronically signed by: Jos Doan M.D. 03/30/2022 7:41 PM ECG Rate (beats per minute): 52 Rhythm: sinus bradycardia Code Status & VTE Plan Code Status t wave flattening anterior, lateral, inferior Supervising Physician Co-Signing Physician Notes 46-year-old female with a history of aortic valve replacement, paroxysmal atrial fibrillation and a history of pulmonary embolus on Coumadin, aortic dissection, presents with chest discomfort and diaphoresis. She recently recovered from a severe bout of flu and reports that at the beginning of her flu stint she did have chest discomfort and symptomatic atrial fibrillation similar to what she is having now. She is concerned with associated symptoms described above including some dizziness nausea and radiation of her chest discomfort. Her pain is currently rated at a 6 out of 10, but this has come and gone throughout the day. On physical exam she is morbidly obese but in no acute distress. She is mentating clearly. Heart rate is regular, sinus rhythm is noted. There is no evidence of murmur auscultated. Lungs are clear to auscultation bilaterally. Abdomen is soft nontender nondistended. She has no peripheral edema. Skin is warm and dry. Work-up today reveals a normal CBC, supratherapeutic INR of 7.4, a sodium of 139 , potassium 3.7, BUN 23, creatinine 1.3 with a baseline of 1.2. Magnesium is 1.7. LFTs are normal. Highly sensitive troponin is 14.6 then 15. Imaging includes a CT angio chest abdomen pelvis with contrast revealing stable appearance of the aortic dissection since prior imaging in October 2021. There is no other acute process present. Overall this chest discomfort is likely secondary to atrial fibrillation with RVR that is classically symptomatic for this patient. ACS is thought to be less likely although still on the differential. It is more likely that her atrial fibrillation is excitable with recent severe respiratory illness with flu. She notably has a history of cardiac cath in 2018 without obstructive disease. Her heart rate has been fluctuating as she goes into and out of atrial fibrillation and her symptoms change as a result of this 2. Continue home metoprolol at this time. Supratherapeutic INR likely secondary to recent acute illness. Holding Coumadin for now. She denies any bleeding except she is about to have a menstrual cycle and is noting some spotting. Her dissection is stable on CT this evening. Appreciate cardiology thoughts and likely she will be able to be discharged home tomorrow. Deepak, DO
[2022-03-30] MEDS ORDERED: OPTIRAY 320 500ml IV ONE (19:08)
--- NOTE | 2022-03-30 19:43 | CT Scan Report ---
CT ANGIOGRAPHY OF THE CHEST DISSECTION PROTOCOL CLINICAL HISTORY: Left-sided chest pain radiating to back. Evaluate for dissection. COMPARISON STUDY: CTA of the chest September 13, 2020 and chest radiograph performed earlier today. TECHNIQUE: Before and following the IV administration of 110 mL of Optiray, helical axial images of t he chest were obtained. Maximal intensity projections and sagittal and coronal reformats were viewed on an independent 3D workstation. IV contrast was administered without complication. Automated exp osure control was utilized for the study. A dose lowering technique was utilized adhering to the dipika [place]anderos. FINDINGS: There are stable postoperative findings involving the aortic valve and aortic root. No per icardial effusion is noted. Cardiomegaly is unchanged. There is no pneumothorax or pleural effusion. There are no pulmonary emboli. The appearance of the chronic aortic dissection beginning within the p roximal descending thoracic aorta is similar to prior CT. Preferential opacification of the true lume n is noted. However, the false lumen is opacified. Mild dilatation, measuring 3.4 cm at the level of the proximal descending thoracic aorta is unchanged. There is no evidence for rupture. No consolidati on is present. A few small pulmonary nodules are unchanged from earlier exams. These are benign. CTA of the abdomen and pelvis will be reported separately. There are no acute fractures. IMPRESSION: 1. No acute findings within the chest. 2. Stable postoperative findings involving the aortic valve and aortic root. Stable appearance of the aortic dissection since CTA of September 13, 2020. ACT 112: Negative or not required by law. Electronically signed by: Jos Doan M.D. 03/30/2022 7:41 PM
[2022-03-30 19:52] LABS: Magnesium 1.7 mg/dl (1.7-2.4)
[2022-03-30] MEDS ORDERED: METOPROLOL TARTRATE 1 MG/ML VIAL IV STA (20:00)
--- NOTE | 2022-03-30 20:06 | CT Scan Report ---
CT angio abd pelvis wo/w con CLINICAL HISTORY: h/o aneurysm COMPARISON STUDY: CTA of the abdomen and pelvis October 20, 2021. TECHNIQUE: Unenhanced and arterial phase imaging of the abdomen and pelvis was performed. Intravenous injection 110 cc of Optiray 320 was uneventful. Sagittal coronal reconstructions were viewed as well as maximal intensity projections on an independent 3-D workstation. Automated exposure control was u tilized for the study. A dose lowering technique was utilized adhering to the principles of ALARA. FINDINGS: No pneumatosis, free air or portal venous gas is present. A right adrenal nodule remains un changed. This is benign. Fat-containing lateral segment hepatic lesion is unchanged. Spleen, left adr enal gland and pancreas are unremarkable. There is no biliary ductal dilatation status post cholecyst ectomy. Stable postoperative findings following partial bilateral nephrectomies are noted. There is n o hydronephrosis. There is no evidence for a bowel obstruction. A small amount of fluid within the pe lvis remains unchanged. The ovaries are prominent. This is unchanged. There is no lymphadenopathy. No fluid collection is present. The appearance of the abdominal aortic dissection remains unchanged sin ce prior CTA. Aneurysmal dilatation of infrarenal abdominal aorta, measuring 3.6 cm is unchanged. The re is no rupture. False lumen is opacified. No fractures are present. Exam is mildly compromised by b stewart wall contacting the gantry. IMPRESSION: 1. No acute process within the abdomen or pelvis. 2. Stable appearance of the aortic dissection since prior CTA. Stable aneurysmal dilatation of the in frarenal abdominal aorta, measuring 3.6 cm. No rupture. 3. No change in a small amount of fluid within the pelvis. 4. No bowel obstruction. No bowel wall thickening. ACT 112: Negative or not required by law. Electronically signed by: Jos Doan M.D. 03/30/2022 8:04 PM
[2022-03-30] MEDS ORDERED: POLYETHYLENE (MIRALAX) 17 GM PACK PO PRN (22:39)
[2022-03-30] MEDS ORDERED: NON-FORMULARY MEDICATION (Iron,Carbonyl-Vitamin C [Vitron-C] 65 mg iron- 125 mg Tablet,Del PO SCH (22:39)
[2022-03-30] MEDS ORDERED: busPIRone 5 MG TAB PO PRN (22:39)
[2022-03-30] MEDS ORDERED: ACETAMINOPHEN 325 MG TAB PO PRN (22:39)
[2022-03-30] MEDS: METOPROLOL TARTRATE 25 MG TAB PO SCH (23:07)
[2022-03-30] MEDS: levETIRAcetam 500 MG TAB PO SCH (23:17)
[2022-03-31 06:09] LABS: Hematocrit (blood only) 39.8 % (34.1-44.9); Hemoglobin 13.6 g/dl (12.0-16.0); Mean Corpuscular Hemoglobin 30.2 pg (25.0-34.0); Mean Corpuscular Hgb Conc 34.2 g/dL (32.0-36.0); Mean Corpuscular Volume 88.4 fL (80.0-100.0); Mean Platelet Volume 10.2 fL (9.4-12.3); Platelet Count 216 K/uL (130-400); RDW Coefficient of Variation 14.5 % (11.5-14.5)
[2022-03-31] MEDS: LEVOTHYROXINE SODIUM 75 MCG TABLET PO SCH (06:15)
[2022-03-31 06:37] LABS: BUN Creatinine Ratio 20.9 (10-20); Calcium 8.7 mg/dl (8.5-10.1); Chol HDL Ratio 2.3 (0-5); Creatinine Clr Calc Pharmacy 87.1 ml/min; Est GFR (African American) 70.2 ml/min; Est GFR (Non-African American) 60.6 ml/min; Magnesium 1.7 mg/dl (1.7-2.4); Potassium 3.5 mmol/L (3.5-5.1)
[2022-03-31 06:46] LABS: Prothrombin Time 77.2 Seconds (9.0-12.0)
[2022-03-31 07:04] LABS: INR 8.1 (0.9-1.1)
[2022-03-31] MEDS ORDERED: PHYTONADIONE 1 MG in DEXTROSE 5% 50 ML IV ONE (08:00)
[2022-03-31] MEDS: METOPROLOL TARTRATE 25 MG TAB PO SCH ×2 (08:17→22:06)
[2022-03-31] MEDS: ROSUVASTATIN CALCIUM 20 MG TAB PO SCH (08:17)
[2022-03-31] MEDS: AMIODARONE 200 MG TAB PO SCH (08:17)
[2022-03-31] MEDS: levETIRAcetam 500 MG TAB PO SCH ×2 (08:17→22:06)
[2022-03-31] MEDS: PANTOprazole 40 MG TAB PO SCH (08:18)
[2022-03-31] MEDS: MAGNESIUM OXIDE 400 MG TAB PO SCH (08:18)
[2022-03-31] MEDS: SERTRALINE HCL 100 MG TABLET PO SCH (08:18)
--- NOTE | 2022-03-31 08:22 | Electrocardiogram Report ---
Test Reason : Blood Pressure : / mmHG Vent. Rate : 052 BPM Atrial Rate : 052 BPM P-R Int : 168 ms QRS Dur : 102 ms QT Int : 530 ms P-R-T Axes : 024 053 059 degrees QTc Int : 492 ms Sinus bradycardia with Premature atrial complexes Poor R wave progression, consider anterior MD vs. lead placement vs. LVH Minor ST depression in Anterolateral leads Abnormal ECG When compared with ECG of 30-MAR-2022 14:13, ST depression in Anterolateral leads now present Confirmed by Herber Alexander ([id number]) on 03/31/2022 8:22:29 AM Referred By: REFERRED SELF Confirmed By:Herber Alexander
--- NOTE | 2022-03-31 08:59 | Electrocardiogram Report ---
Test Reason : Blood Pressure : / mmHG Vent. Rate : 052 BPM Atrial Rate : 052 BPM P-R Int : 166 ms QRS Dur : 104 ms QT Int : 498 ms P-R-T Axes : 038 041 060 degrees QTc Int : 463 ms Sinus bradycardia with Premature atrial complexes Poor R wave progression, consider anterior AK vs. lead placement vs. LVH Abnormal ECG When compared with ECG of 21-MAR-2022 11:50, Sinus rhythm has replaced Atrial fibrillation Vent. rate has decreased BY 63 BPM Loss of precordial R wave voltage, may be lead placement related Confirmed by Herber Alexander ([id number]) on 03/31/2022 8:59:09 AM Referred By: REFERRED SELF Confirmed By:Herber Alexander
[2022-03-31] MEDS ORDERED: POTASSIUM CHLORIDE 10 MEQ TABCR PO SCH (09:00)
[2022-03-31 09:50] LABS: Appearance Urine Cloudy (Clear); Bacteria Urine Automated 1+ (Negative); Bilirubin Urine Negative (Negative); Blood Urine 3+ (Negative); Color Urine Yellow; Epithelial Cell Urine Auto >30 /lpf (0-5); Glucose Urine UA Negative (Negative); Ketones Urine Negative (Negative); Leukocyte Esterase Urine 2+ (Negative); Nitrite Urine Negative (Negative); Protein Urine Trace (Negative); RBC Urine Automated 0-4 /hpf (0-4); Specific Gravity Urine > 1.045 (1.000-1.030); Urobilinogen Urine Negative (Negative); WBC Urine Automated >30 /hpf (0-5); pH Urine 5.5 (4.5-7.5)
[2022-03-31 10:01] LABS: Cast Urine Automated 0 /lpf (0-5)
--- NOTE | 2022-03-31 11:55 | Cardiology Consultation ---
Date of Consultation March 31, 2022 Assessment & Plan (1) Chest pain: (2) Supratherapeutic INR: (3) Paroxysmal atrial fibrillation: (4) S/P TAVR (transcatheter aortic valve replacement): (5) History of aortic dissection: Plan Very complex 46-year-old female with longstanding valvular disease and prior aortic dissection, tuberosclerosis, paroxysmal atrial fibrillation Presented with chest pain and tachypalpitations with paroxysmal atrial fibrillation observed including earlier this morning Patient did not receive metoprolol dosing last evening Current events including chest pain and recurrence of atrial fibrillation may have been precipitated by recent influenza and gastroenteritis with hypokalemia. INR supratherapeutic Plan: Continue telemetry, amiodarone, metoprolol at current dosing Supplement potassium and increase daily potassium dose (ordered) Agree with vitamin K to reduce INR currently supratherapeutic Increase activity in hospital History of Present Illness Reason for Consultation: Chest pain, paroxysmal atrial fibrillation Requesting Physician: Dr. Walker Attending Physician: Eduard Walker MD History of Present Illness Patient is a 46-year-old female with a very complex history which includes 1. Tuberous sclerosis with associated seizure 2. 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 April 14, 2003 aortic valve replacement with a 23 mm Romeo-Pineda valve and PFO closure by Dr. Mondragon 4. August 13, 2006 Type 1 aortic dissection with intrathoracic rupture requiring re-operation and repair of the ascending aortic dissection with hypothermic circulatory arrest with persistent type B distal aortic 5. Cardiac Catheterization in November 2014, at [place], revealed normal coronary arteries. 6. 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 7. On June 01, 2017 transcatheter aortic valve replacement with a 23 mm Pineda Percy 3 [id number] by Dr. Vargas and Dr. Vasquez at [facility] without complication. 8. Atrial arrhythmias including PSVT, atrial fibrillation, and atrial flutter currently on oral amiodarone therapy 9. Hypertension 10. Hyperprolactinemia secondary to functional pituitary adenoma 11. CKD stage III, status post left partial nephrectomy for renal cell carcinoma 2016, right partial nephrectomy 2018 Patient presents with symptoms of chest pressure and pain while driving. Most recent difficulties with influenza A/gastroenteritis no acute cardiac complaints. On presentation patient in sinus rhythm but paroxysmal atrial fibrillation observed overnight. Blood pressures and heart rate mildly labile. INR supratherapeutic on presentation CTA chest and abdomen without change Currently with vague chest discomfort but on feels improved since admission No fevers or chills. No overt bleeding difficulties. Appetite generally good. No change in medications recently Allergies Allergy/AdvReac Type Severity Reaction Status Date / Time Sulfa (Sulfonamide Allergy Severe ANAPHYLAXIS Verified 09/13/20 19:03 Antibiotics) aloe Allergy Unknown ITCHY AND Verified 09/13/20 19:03 HIVES Cipro AdvReac Intermediate siezure Verified 10/22/15 03:56 ciprofloxacin AdvReac Intermediate siezure Verified 09/13/20 19:03 Home Medications Medication Instructions Recorded Confirmed Type cholecalciferol (vitamin D3) 25 1,000 unit PO QAM 11/13/18 03/30/22 History mcg (1,000 unit) capsule (Vitamin D3) levothyroxine 75 mcg capsule 75 mcg PO DAILYBB 11/13/18 03/30/22 History multivitamin 1 tab PO QAM 11/13/18 03/30/22 History omeprazole 20 mg tablet,delayed 20 mg PO QAM 11/13/18 03/30/22 History release potassium chloride 10 mEq 10 meq PO QAM 11/13/18 03/30/22 History tablet,extended release (Klor-Con) rosuvastatin 20 mg tablet 20 mg PO DAILY 11/13/18 03/30/22 History ascorbic acid (vitamin C) 250 mg 250 mg PO QAM 04/23/19 03/30/22 History tablet furosemide 40 mg tablet 40 mg PO QAM 04/23/19 03/30/22 History hydroxyzine HCl 25 mg tablet 25 mg PO TID PRN Anxiety 04/23/19 03/30/22 History docusate sodium 100 mg capsule 100 mg PO BID PRN Constipation 09/13/20 03/30/22 History (Colace) sertraline 100 mg tablet 200 mg PO DAILY 09/13/20 03/30/22 History amiodarone 200 mg tablet (Pacerone) 200 mg PO DAILY #0 tabs 09/14/20 03/30/22 Rx buspirone 5 mg tablet 5 mg PO TID PRN Anxiety 03/30/22 03/30/22 History iron,carbonyl 65 mg-vitamin C 125 1 tab PO BID 03/30/22 03/30/22 History mg tablet,delayed release (Vitron-C) levetiracetam 1,000 mg tablet 1,000 mg PO BID 03/30/22 03/30/22 History (Keppra) magnesium oxide 400 mg PO DAILY 03/30/22 03/30/22 History metoprolol tartrate 50 mg tablet 75 mg PO BID 03/30/22 03/30/22 History warfarin 2.5 mg tablet 1.25 mg PO [id number] 03/30/22 03/30/22 History warfarin 2.5 mg tablet 2.5 mg PO 2XWK 03/30/22 03/30/22 History Patient History Medical History AAA (abdominal aortic aneurysm) Allergic reaction Atrial fibrillation Chronic diastolic (congestive) heart failure CKD (chronic kidney disease), stage III Endometriosis GERD (gastroesophageal reflux disease) Hyperprolactinoma Hypothyroidism Tuberous sclerosis Surgical History H/O aortic valve replacement H/O eye surgery 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 H/O partial nephrectomy History of aortic dissection Hx of tubal ligation S/P appendectomy S/P cholecystectomy S/P tonsillectomy and adenoidectomy Family History Other Hypertension Ovarian cancer Tuberous sclerosis Social History Smoking Status: Never smoker Hx Alcohol Use: No Hx Substance Use: No Preferred Language: Iranian Communication Ability: Effective Beliefs That Will Affect Care: None Current Living Situation: Spouse Current Living Situation Comment: Marycruz Talley Feels Safe at Home: Yes Assistive Devices: Denture - Upper and Glasses Results & Data ([facility]) Vital Signs (Past 12 Hours) Vital Signs Temp Pulse Pulse Resp BP Pulse Ox O2 Del Method 03/31/22 07:52 36.5 C 98 H 20 103/70 91 Room Air 03/31/22 07:51 108 H 03/31/22 07:27 48 L 03/31/22 03:15 36.7 C 54 L 20 125/82 94 Room Air Laboratory Results Laboratory Results - last 24 hr 03/30/22 03/30/22 03/30/22 14:22 14:22 14:22 WBC 5.50 RBC 4.93 Hgb 15.0 Hct 44.0 MCV 89.2 MCH 30.4 MCHC 34.1 RDW Std Deviation 47.5 H RDW Coeff of Leroy 14.6 H Plt Count 228 MPV 10.3 Immature Gran % (Auto) 0.5 Neut % (Auto) 55.1 Lymph % (Auto) 33.3 [place] % (Auto) 7.8 Eos % (Auto) 2.0 Baso % (Auto) 1.3 Neut # (Auto) 3.03 Lymph # (Auto) 1.83 [place] # (Auto) 0.43 Eos # (Auto) 0.11 Baso # (Auto) 0.07 Immature Gran # (Auto) 0.03 H PT 70.9 H INR 7.4 H* Sodium 139 Potassium 3.7 Chloride 106 Carbon Dioxide 24 Anion Gap 9 BUN 23 Creatinine 1.31 H Est Cr Clr Drug Dosing Not Reportable Est GFR ( Amer) 56.8 Est GFR (Non-Af Amer) 49.0 BUN/Creatinine Ratio 17.6 Glucose 89 Calcium 9.4 Magnesium Total Bilirubin 0.5 AST 20 ALT 18 Alkaline Phosphatase 76 Troponin I High Sens 14.6 H Total Protein 7.7 Albumin 4.4 Globulin 3.3 Albumin/Globulin Ratio 1.3 Triglycerides Cholesterol LDL Cholesterol, Calc VLDL Cholesterol, Calc HDL Cholesterol Cholesterol/HDL Ratio Lipase 59 TSH Urine Color Urine Appearance Urine pH Ur Specific [place] Urine Protein Urine Glucose (UA) Urine Ketones Urine Blood Urine Nitrite Urine Bilirubin Urine Urobilinogen Ur Leukocyte Esterase Urine WBC (Auto) Urine RBC (Auto) U Hyaline Cast (Auto) U Epithel Cells (Auto) Urine Bacteria (Auto) Urine Yeast SARS-CoV-2, RNA, NAAT 03/30/22 03/30/22 03/30/22 16:38 17:40 23:04 WBC RBC Hgb Hct MCV MCH MCHC RDW Std Deviation RDW Coeff of Leroy Plt Count MPV Immature Gran % (Auto) Neut % (Auto) Lymph % (Auto) [place] % (Auto) Eos % (Auto) Baso % (Auto) Neut # (Auto) Lymph # (Auto) [place] # (Auto) Eos # (Auto) Baso # (Auto) Immature Gran # (Auto) PT INR Sodium Potassium Chloride Carbon Dioxide Anion Gap BUN Creatinine Est Cr Clr Drug Dosing Est GFR ( Amer) Est GFR (Non-Af Amer) BUN/Creatinine Ratio Glucose Calcium Magnesium 1.7 Total Bilirubin AST ALT Alkaline Phosphatase Troponin I High Sens 15.0 H 15.0 H Total Protein Albumin Globulin Albumin/Globulin Ratio Triglycerides Cholesterol LDL Cholesterol, Calc VLDL Cholesterol, Calc HDL Cholesterol Cholesterol/HDL Ratio Lipase TSH Urine Color Urine Appearance Urine pH Ur Specific [place] Urine Protein Urine Glucose (UA) Urine Ketones Urine Blood Urine Nitrite Urine Bilirubin Urine Urobilinogen Ur Leukocyte Esterase Urine WBC (Auto) Urine RBC (Auto) U Hyaline Cast (Auto) U Epithel Cells (Auto) Urine Bacteria (Auto) Urine Yeast SARS-CoV-2, RNA, NAAT NEGATIVE 03/31/22 03/31/22 03/31/22 05:24 05:24 05:24 WBC 4.90 RBC 4.50 Hgb 13.6 Hct 39.8 MCV 88.4 MCH 30.2 MCHC 34.2 RDW Std Deviation 47.0 H RDW Coeff of Leroy 14.5 Plt Count 216 MPV 10.2 Immature Gran % (Auto) Neut % (Auto) Lymph % (Auto) [place] % (Auto) Eos % (Auto) Baso % (Auto) Neut # (Auto) Lymph # (Auto) [place] # (Auto) Eos # (Auto) Baso # (Auto) Immature Gran # (Auto) PT 77.2 H INR 8.1 H* Sodium 139 Potassium 3.5 Chloride 109 H Carbon Dioxide 22 Anion Gap 8 BUN 23 Creatinine 1.10 Est Cr Clr Drug Dosing 87.1 Est GFR ( Amer) 70.2 Est GFR (Non-Af Amer) 60.6 BUN/Creatinine Ratio 20.9 H Glucose 96 Calcium 8.7 Magnesium 1.7 Total Bilirubin AST ALT Alkaline Phosphatase Troponin I High Sens 18.0 H Total Protein Albumin Globulin Albumin/Globulin Ratio Triglycerides 126 Cholesterol 108 LDL Cholesterol, Calc 36 VLDL Cholesterol, Calc 25 HDL Cholesterol 47 Cholesterol/HDL Ratio 2.3 Lipase TSH Urine Color Urine Appearance Urine pH Ur Specific [place] Urine Protein Urine Glucose (UA) Urine Ketones Urine Blood Urine Nitrite Urine Bilirubin Urine Urobilinogen Ur Leukocyte Esterase Urine WBC (Auto) Urine RBC (Auto) U Hyaline Cast (Auto) U Epithel Cells (Auto) Urine Bacteria (Auto) Urine Yeast SARS-CoV-2, RNA, NAAT 03/31/22 03/31/22 05:24 09:10 WBC RBC Hgb Hct MCV MCH MCHC RDW Std Deviation RDW Coeff of Leroy Plt Count MPV Immature Gran % (Auto) Neut % (Auto) Lymph % (Auto) [place] % (Auto) Eos % (Auto) Baso % (Auto) Neut # (Auto) Lymph # (Auto) [place] # (Auto) Eos # (Auto) Baso # (Auto) Immature Gran # (Auto) PT INR Sodium Potassium Chloride Carbon Dioxide Anion Gap BUN Creatinine Est Cr Clr Drug Dosing Est GFR ( Amer) Est GFR (Non-Af Amer) BUN/Creatinine Ratio Glucose Calcium Magnesium Total Bilirubin AST ALT Alkaline Phosphatase Troponin I High Sens Total Protein Albumin Globulin Albumin/Globulin Ratio Triglycerides Cholesterol LDL Cholesterol, Calc VLDL Cholesterol, Calc HDL Cholesterol Cholesterol/HDL Ratio Lipase TSH 1.987 Urine Color Yellow Urine Appearance Cloudy A Urine pH 5.5 Ur Specific [place] > 1.045 H Urine Protein Trace H Urine Glucose (UA) Negative Urine Ketones Negative Urine Blood 3+ H Urine Nitrite Negative Urine Bilirubin Negative Urine Urobilinogen Negative Ur Leukocyte Esterase 2+ H Urine WBC (Auto) >30 H Urine RBC (Auto) 0-4 U Hyaline Cast (Auto) 0 U Epithel Cells (Auto) >30 H Urine Bacteria (Auto) 1+ H Urine Yeast Pending SARS-CoV-2, RNA, NAAT
[2022-03-31] MEDS ORDERED: POTASSIUM CHLORIDE CRTAB 20 MEQ TABCR PO ONE (12:12)
[2022-03-31 13:17] LABS: INR 3.3 (0.9-1.1)
--- NOTE | 2022-03-31 14:14 | Hospitalist Progress Note ---
Date of Service March 31, 2022 Assessment & Plan (1) Supratherapeutic INR: (2) Paroxysmal atrial fibrillation: Plan 46 y/o F with PMH of aortic dissection with repair in 2006, "Type B" aortic dissection, TAVR in 2018, atrial arrhythmias including PSVT, atrial fibrillation, and atrial flutter anticoagulated on warfarin, CKD III, h/o tuberous sclerosis with partial L nephrectomy in 2016 and partial R nephrectomy in 2019 presented 03/30 to ER with c/o CP and palpitations. She is being managed for the following: Chest pain: Palpitation: Demand ischemia Patient comes in with complaint of tight clenching feeling [while driving] that it started in her anterior chest radiating to her left ribs and then back associated with palpitation. History stress echo 09/15/2020: Achieved 80% age-predicted maximum heart rate, reported patient had chest pain throughout entire study and in recovery, no stress-induced EKG changes. No wall motion abnormalities noted History cardiac cath 2018 without obstructive disease Admitting troponin minimally elevated at around 15, flat trended. Admitting EKG with sinus bradycardia with PACs. Admitting CXR with no acute changes. Admitting CTA chest with no acute finding, reveals stable postoperative findings involving the aortic valve and aortic root. Stable appearance of the aortic dissection since CTA of September 13, 2020. Admitting CT abdomen pelvis with no acute findings. Stable aneurysmal dilatation of the infrarenal abdominal aorta, measuring 3.6 cm. No rupture. Echo 03/31 with EF of 60 to 65%, grade 2 diastolic dysfunction [pseudonormalization pattern]. Status post TAVR. Aortic root repair. Symptoms and troponin elevation likely secondary to A. fib RVR which could have been precipitated on the background of recent influenza. TSH wnl. Lipid profile reviewed, good LDL and HDL levels. No further chest pain in the hospital, patient in A. fib with rate control. Continue telemetry, monitor and replete electrolytes. Continue home cardiology medications, cardiology on board, discussed with cardiology. Supratherapeutic INR Atrial fibrillation History of paroxysmal A. fib anticoagulated with warfarin. Admitting INR of 7.4, warfarin was held on admitting day, INR went up to 8.1 next day on 03/31. Patient takes 2.5 mg warfarin 2 times a week and 1.25 mg daily for rest of the days. Last dose per pt was 03/29/2022 evening. Patient reports only buspirone has been new medication changes/added in the last 1 month which has no interaction with warfarin level. 1 mg IV vitamin K dose given 03/31, repeat INR 4 hours later 3.3. INR likely elevated secondary to her recent flu/illness, patient reports taking Coumadin at the recommended dose. Will hold her home dose of warfarin today, INR in the morning, possible resume warfarin tomorrow with close monitoring of PT/INR while in the hospital and upon discharge. Patient made aware. History of aortic dissection: History aortic dissection with repair in 2006, "Type B" aortic dissection CTA Chest: No acute findings within the chest. Stable postoperative findings involving the aortic valve and aortic root. Stable appearance of the aortic dissection since CTA of September 13, 2020. Will need continued surveillance S/P TAVR (transcatheter aortic valve replacement): TAVR in 2018. Chronic diastolic (congestive) heart failure: Appears euvolemic, resume home meds as able. AAA (abdominal aortic aneurysm): 10/20/21 CT abd/pelvis: No significant change in appearance of the aortic dissection since CT of September 13, 2020. Stable aneurysmal dilatation of the infrarenal abdominal aorta, measuring 3.6 x 3.[address] abdomen pelvis: 1. No acute process within the abdomen or pelvis. 2. Stable appearance of the aortic dissection since prior CTA. Stable aneurysmal dilatation of the infrarenal abdominal aorta, measuring 3.6 cm. No rupture. 3. No change in a small amount of fluid within the pelvis. 4. No bowel obstruction. No bowel wall thickening. Will need continued surveillance Other chronic medical conditions: CKD [baseline creatinine 1.2], tuberous sclerosis [status post partial left nephrectomy 2015 and partial right nephrectomy 2018, follows Dr. Barrett neurology], hypothyroidism --- resume home meds as able DVT prophylaxis: Supratherapeutic INR, possible resume warfarin tomorrow with checking INR Full code Admission and Anticipated Discharge Date Admission Date: March 30, 2022 Subjective Patient seen and examined at bedside as a follow-up of chest pain, supratherapeutic INR, and history of paroxysmal A. fib on Coumadin. Patient was lying in bed, on room air, NAD, reports no new acute event overnight, denies any chest pain or shortness of breath or dizziness, reports ea ting okay and moving bowels okay, denies any bleeding in the urine or stool or any open wound which is bleeding, denies other review of symptoms. Physical Exam Physical Exam: GENERAL: Alert and oriented x3. NAD, on RA. Obese class III. HEENT: No pallor, no icterus. Pupils equal, round and reactive to light. Oral mucosa moist. NECK: No JVD, no neck masses. HEART: S1 and S2 heard. irregular rate and rhythm. systolic murmur at aortic area, no gallop. RESPIRATORY SYSTEM: Normal AP diameter. No accessory muscle use. No wheezing, no crackles. ABDOMEN: Soft, bowel sounds present, nontender, no distention. CENTRAL NERVOUS SYSTEM: No facial droop. Speech is clear. Obeys simple commands. Moves extremities. EXTREMITIES: No edema, no erythema seen. Results & Data Results & Data ([facility]) Vital Signs (Past 12 Hours) Vital Signs Temp Pulse Pulse Resp BP Pulse Ox O2 Del Method 03/31/22 11:54 36.6 C 50 L 18 98/64 L 95 Room Air 03/31/22 07:52 36.5 C 98 H 20 103/70 91 Room Air 03/31/22 07:51 108 H 03/31/22 07:27 48 L 03/31/22 03:15 36.7 C 54 L 20 125/82 94 Room Air
[2022-04-01] MEDS: LEVOTHYROXINE SODIUM 75 MCG TABLET PO SCH (05:54)
[2022-04-01 07:29] LABS: Hematocrit (blood only) 38.8 % (34.1-44.9); Hemoglobin 13.3 g/dl (12.0-16.0); Mean Corpuscular Hemoglobin 30.3 pg (25.0-34.0); Mean Corpuscular Hgb Conc 34.3 g/dL (32.0-36.0); Mean Corpuscular Volume 88.4 fL (80.0-100.0); Mean Platelet Volume 9.9 fL (9.4-12.3); Platelet Count 200 K/uL (130-400); RDW Coefficient of Variation 14.4 % (11.5-14.5); RDW Standard Deviation 46.5 fL (36.4-46.3); Red Blood Count 4.39 M/uL (3.93-5.22); White Blood Count 5.42 K/ul (4.8-10.8)
[2022-04-01 07:52] LABS: BUN Creatinine Ratio 23.7 (10-20); Calcium 8.7 mg/dl (8.5-10.1); Creatinine Clr Calc Pharmacy 82.9 ml/min; Est GFR (African American) 67.3 ml/min; Magnesium 1.8 mg/dl (1.7-2.4); Phosphorus 2.4 mg/dl (2.5-4.9)
[2022-04-01 08:16] LABS: INR 1.4 (0.9-1.1); Prothrombin Time 14.2 Seconds (9.0-12.0)
[2022-04-01] MEDS: levETIRAcetam 500 MG TAB PO SCH (08:25)
[2022-04-01] MEDS: METOPROLOL TARTRATE 25 MG TAB PO SCH (08:25)
[2022-04-01] MEDS: PANTOprazole 40 MG TAB PO SCH (08:25)
[2022-04-01] MEDS: MAGNESIUM OXIDE 400 MG TAB PO SCH (08:26)
[2022-04-01] MEDS: SERTRALINE HCL 100 MG TABLET PO SCH (08:26)
[2022-04-01] MEDS: AMIODARONE 200 MG TAB PO SCH (08:26)
[2022-04-01] MEDS: ROSUVASTATIN CALCIUM 20 MG TAB PO SCH (08:26)
[2022-04-01] MEDS ORDERED: POTASSIUM CHLORIDE CRTAB 20 MEQ TABCR PO SCH (09:00)
[2022-04-01] MEDS ORDERED: FUROSEMIDE 40 MG TAB PO SCH (09:00)
[2022-04-01] MEDS ORDERED: INFLUENZA VIRUS QUAD VACCINE 0.5 ML SYR IM ONE (09:30)
[2022-04-01] MEDS ORDERED: SODIUM PHOSPHATE 3 MMOL/1 ML INFUSION IV STA (10:07)
[2022-04-01] MEDS ORDERED: SODIUM PHOSPHATE 12 MMOL in SODIUM CHLORIDE 0.9% 250 ML IV ONE (10:45)
--- NOTE | 2022-04-01 11:02 | Cardiology Progress Note ---
Date of Service April 01, 2022 Assessment & Plan (1) Chest pain: (2) Supratherapeutic INR: (3) Paroxysmal atrial fibrillation: (4) S/P TAVR (transcatheter aortic valve replacement): (5) History of aortic dissection: Plan Very complex 46-year-old female with longstanding valvular disease and prior aortic dissection, tuberosclerosis, paroxysmal atrial fibrillation Presented with chest pain and tachypalpitations with paroxysmal atrial fibrillation observed including earlier this morning Patient did not receive metoprolol dosing last evening Current events including chest pain and recurrence of atrial fibrillation may have been precipitated by recent influenza and gastroenteritis with hypokalemia. INR supratherapeutic Plan: Continue telemetry, amiodarone, metoprolol at current dosing Supplement potassium and increase daily potassium dose (ordered) Agree with vitamin K to reduce INR currently supratherapeutic Increase activity in hospital 04/01/2022 No further atrial arrhythmias and patient clinically improved. Would resume oral warfarin Increase potassium 20 mg p.o. daily on discharge Complex patient with current symptoms likely exacerbated by acute viral syndrome. Now improved No contraindications to discharge Admission and Anticipated Discharge Date Admission Date: March 30, 2022 Subjective Patient seen and examined, chart, medications, telemetry reviewed Feels much improved since admission. No further atrial arrhythmias with mild sinus bradycardia. No fevers or chills no shortness of breath Physical Exam Constitutional: WD/WN, vitals as above + obese Eyes: PERRL, conjunctivae normal, anicteric sclerae ENMT: external ear and nose normal, oropharynx normal Neck: trachea midline, no thyromegaly Respiratory: normal respiratory effort, lungs clear to auscultation Cardiovascular: Rate/Rhythm: regular rate and regular rhythm Heart Sounds: + murmur (Grade 2/6 to 3/6 systolic) Vessels: no JVD Extremities: no edema Gastrointestinal (Abdomen): normal bowel sounds, soft, nontender, no hepatosplenomegaly Musculoskeletal: no cyanosis or clubbing, extremities motor strength 5/5 Results & Data ([facility]) Vital Signs (Past 12 Hours) Vital Signs Temp Pulse Pulse Resp BP Pulse Ox Pulse Ox 04/01/22 07:18 36.6 C 55 L 18 122/77 95 04/01/22 03:32 36.6 C 62 18 133/62 95 04/01/22 02:24 48 L 93 04/01/22 01:26 46 L 93 04/01/22 00:05 36.5 C 52 L 18 102/65 93 03/31/22 23:08 52 L 97 O2 Del Method O2 Del Method 04/01/22 07:18 Room Air 04/01/22 03:32 Room Air 04/01/22 02:24 Room Air 04/01/22 01:26 Room Air 04/01/22 00:05 Room Air 03/31/22 23:08 Room Air Laboratory Results Laboratory Results - last 24 hr 03/31/22 03/31/22 04/01/22 09:10 12:46 06:59 WBC RBC Hgb Hct MCV MCH MCHC RDW Std Deviation RDW Coeff of Leroy Plt Count MPV PT 33.0 H 14.2 H INR 3.3 H 1.4 H Sodium Potassium Chloride Carbon Dioxide Anion Gap BUN Creatinine Est Cr Clr Drug Dosing Est GFR ( Amer) Est GFR (Non-Af Amer) BUN/Creatinine Ratio Glucose Calcium Phosphorus Magnesium Urine Yeast Budding A 04/01/22 04/01/22 06:59 06:59 WBC 5.42 RBC 4.39 Hgb 13.3 Hct 38.8 MCV 88.4 MCH 30.3 MCHC 34.3 RDW Std Deviation 46.5 H RDW Coeff of Leroy 14.4 Plt Count 200 MPV 9.9 PT INR Sodium 138 Potassium 4.0 Chloride 110 H Carbon Dioxide 22 Anion Gap 6 BUN 27 H Creatinine 1.14 Est Cr Clr Drug Dosing 82.9 Est GFR ( Amer) 67.3 Est GFR (Non-Af Amer) 58.0 BUN/Creatinine Ratio 23.7 H Glucose 92 Calcium 8.7 Phosphorus 2.4 L Magnesium 1.8 Urine Yeast
--- NOTE | 2022-04-01 13:38 | Discharge Summary ---
Date of Service April 01, 2022 Admission HPI Per Admitting Provider Patient is 46 y/o F with PMH aortic dissection with repair in 2007, "Type B" aortic dissection, TAVR in 2018, atrial arrhythmias including PSVT, atrial fibrillation, and atrial flutter on anticoagulation, CKD III, h/o tuberous sclerosis with partial L nephrectomy in 2016 and partial R nephrectomy in 2019 and other medical problems listed below presented to ER with c/o CP today. Patient states was driving in car when started feeling tight clenching feeling that started in anterior chest radiated to left ribs and then back. Tingling to left arm. Also reports sweats, nausea without vomiting. [place] a little SOB and had palpitations. CP much improved and initially resolved however still having intermittent episodes of chest heaviness and palpitations while in ER. No prior treatment. Reports palpitations and dizziness at least once a day chronically and usually just rests and sympotms improve. Recent history URI symptoms and tested positive for influenza A on 03/21/22 and was in a-fib at that ER visit. States cough, sore throat, congestion have resolved. Denies fever/chills, diaphoresis, V/D/C, SAM, syncope, vision changes, neck pain, orthopnea, choking, otalgia, rhinorrhea, abdominal pain, extremity weakness, extremity edema, rashes, urinary symptoms. Denies missed medications. Outpatient chart review: 10/20/21: CT abd/pelvis: No significant change in appearance of the aortic dissection since CT of September 13, 2020. Stable aneurysmal dilatation of the infrarenal abdominal aorta, measuring 3.6 x 3.1 cm History stress echo 09/15/2020: Achieved 80% age-predicted maximum heart rate, reported patient had chest pain throughout entire study and in recovery, no stress-induced EKG changes. No wall motion abnormalities noted Cardiac cath 2017 without obstructive disease Follows with Ian Paulson PA-C Admission Exam Per Admitting Provider General: no distress, obese Head: normocephalic, atraumatic Eyes: conjunctiva non-injected, anicteric ENT: normal inspection external ears, nose, mucous membranes moist Neck: supple, trachea midline Lungs: clear, no respiratory distress, no wheezing/rhonchi/rales CV: irregularly irregular rhythm, + systolic murmur, no pretibial edema Abd: normal BS, soft, non-tender Ext: no cyanosis, no calf tenderness Neuro: A&O x 3, no focal deficits noted, normal affect Skin: warm, dry Principal Diagnosis Chest pain Palpitation Demand ischemia Supratherapeutic INR Recent flulike illness Discharge Exam GENERAL: Alert and oriented x3. NAD, on RA. Obese class III. HEENT: No pallor, no icterus. Pupils equal, round and reactive to light. Oral mucosa moist. NECK: No JVD, no neck masses. HEART: S1 and S2 heard. irregular rate and rhythm. systolic murmur at aortic area, no gallop. RESPIRATORY SYSTEM: Normal AP diameter. No accessory muscle use. No wheezing, no crackles. ABDOMEN: Soft, bowel sounds present, nontender, no distention. CENTRAL NERVOUS SYSTEM: No facial droop. Speech is clear. Obeys simple commands. Moves extremities. EXTREMITIES: No edema, no erythema seen. Discharge Data Allergies Allergy/AdvReac Type Severity Reaction Status Date / Time Sulfa (Sulfonamide Allergy Severe ANAPHYLAXIS Verified 09/13/20 19:03 Antibiotics) aloe Allergy Unknown ITCHY AND Verified 09/13/20 19:03 HIVES Cipro AdvReac Intermediate siezure Verified 10/22/15 03:56 ciprofloxacin AdvReac Intermediate siezure Verified 09/13/20 19:03 Consultations 03/30/22 17:46 ED Decision to Admit Stat 03/31/22 08:00 Consult Cardiology Routine Ordered Studies 03/30/22 18:41 CTA chest dissec wo/w con [CT angio chest dissec wo/w con] Stat 03/30/22 18:42 CT angio abd pelvis wo/w con Stat Hospital Course (1) Supratherapeutic INR: (2) Paroxysmal atrial fibrillation: Plan 46 y/o F with PMH of aortic dissection with repair in 2007, "Type B" aortic dissection, TAVR in 2018, atrial arrhythmias including PSVT, atrial fibrillation, and atrial flutter anticoagulated on warfarin, CKD III, h/o tuberous sclerosis with partial L nephrectomy in 2016 and partial R nephrectomy in 2019 presented 03/30 to ER with c/o CP and palpitations. She was managed for the following: Chest pain: Palpitation: Demand ischemia Patient comes in with complaint of tight clenching feeling [while driving] that it started in her anterior chest radiating to her left ribs and then back associated with palpitation. History stress echo 09/15/2020: Achieved 80% age-predicted maximum heart rate, reported patient had chest pain throughout entire study and in recovery, no stress-induced EKG changes. No wall motion abnormalities noted History cardiac cath 2018 without obstructive disease Admitting troponin minimally elevated at around 15, flat trended. Admitting EKG with sinus bradycardia with PACs. Admitting CXR with no acute changes. Admitting CTA chest with no acute finding, reveals stable postoperative findings involving the aortic valve and aortic root. Stable appearance of the aortic dissection since CTA of September 13, 2020. Admitting CT abdomen pelvis with no acute findings. Stable aneurysmal dilatation of the infrarenal abdominal aorta, measuring 3.6 cm. No rupture. Echo 03/31 with EF of 60 to 65%, grade 2 diastolic dysfunction [pseudonormalization pattern]. Status post TAVR. Aortic root repair. Symptoms and troponin elevation likely secondary to A. fib RVR which could have been precipitated on the background of recent influenza. TSH wnl. Lipid profile reviewed, good LDL and HDL levels. No further chest pain in the hospital, patient in A. fib with rate control. Potassium supplement has been increased from 10 mEq daily to 20 mEq daily. Follow-up with PCP in a week time and cardiology upon discharge as prior. Patient reports feeling stronger and back to her baseline and would like to go home today. Supratherapeutic INR Atrial fibrillation History of paroxysmal A. fib anticoagulated with warfarin. Admitting INR of 7.4, warfarin was held on admitting day, INR went up to 8.1 next day on 03/31. Patient takes 2.5 mg warfarin 2 times a week and 1.25 mg daily for rest of the days. Last dose per pt was 03/29/2022 evening. Patient reports only buspirone has been new medication changes/added in the last 1 month which has no interaction with warfarin level. 1 mg IV vitamin K dose given 03/31, repeat INR 4 hours later 3.3. INR today 1.4, will resume her home medications of warfarin dose today. INR likely elevated secondary to her recent flu/illness, patient reports taking Coumadin at the recommended dose. Patient to follow-up with Coumadin clinic in 2 to 3 days upon discharge and then further recommendation afterwards from them. History of aortic dissection: History aortic dissection with repair in 2007, "Type B" aortic dissection CTA Chest: No acute findings within the chest. Stable postoperative findings involving the aortic valve and aortic root. Stable appearance of the aortic dissection since CTA of September 13, 2020. Will need continued surveillance S/P TAVR (transcatheter aortic valve replacement): TAVR in 2018. Chronic diastolic (congestive) heart failure: Appears euvolemic, resume home meds as able. AAA (abdominal aortic aneurysm): 10/20/21 CT abd/pelvis: No significant change in appearance of the aortic dissection since CT of September 13, 2020. Stable aneurysmal dilatation of the infrarenal abdominal aorta, measuring 3.6 x 3.[address] abdomen pelvis: 1. No acute process within the abdomen or pelvis. 2. Stable appearance of the aortic dissection since prior CTA. Stable aneurysmal dilatation of the infrarenal abdominal aorta, measuring 3.6 cm. No rupture. 3. No change in a small amount of fluid within the pelvis. 4. No bowel obstruction. No bowel wall thickening. Will need continued surveillance Other chronic medical conditions: CKD [baseline creatinine 1.2], tuberous sclerosis [status post partial left nephrectomy 2015 and partial right nephrectomy 2018, follows Dr. Barrett neurology], hypothyroidism --- resume home meds as able DVT prophylaxis: On warfarin. Full code Patient being discharged to home with following instruction at the point of discharge: Follow-up with your primary care physician within a week time and likely you will need/CBC/CMP/magnesium/phosphorus levels. Follow-up with your Coumadin clinic in 2 to 3 days time to drop PT/INR, then follow-up with your recommendation thereafter. Continue to take your warfarin as prior. Resume your warfarin from today. Follow-up with your cardiology as an outpatient as prior. Take your medications as prescribed. Home Health Attestation I certify that this patient is under my care and that I, or a physicians real estate executive assistant working with me, had a face to-face encounter that meets the home health [id number] encounter requirements with this patient. The encounter with the patient was in whole, or in part, for the following medical condition, which is the primary reason for home health care (list medical condition): I certify that, based on my findings, the following services are medically necessary home health services: My clinical findings support the need for the above services because: Further, I certify that my clinical findings support that this patient is homebound (i.e. absences from home require considerable and taxing effort and are for medical reasons or jehovah's witness services or infrequently or of short duration when for other reasons) because: Certification for Home Health Services: Based on the above findings, I certify that this patient is confined to the home and needs intermittent long term care, physical therapy and/or speech therapy or continues to need occupational therapy. The patient is under my care, and I have initiated the establishment of the plan of care. This patient will be followed by a physician who will periodically review the plan of care. Total Time Total Time Spent Total Time Spent (In Minutes): 45 Discharge Plan Discharge Items Patient Disposition: Home - Self-Care Reason For Visit: cp Discharge Diagnosis: Chest pain Palpitation Demand ischemia Supratherapeutic INR Recent flulike illness Activity: Resume your previous activity Non-emergency contact: Primary Care Provider Call non-emergency contact if: you have any medication questions, your symptoms worsen and your temperature is above 101 Follow-up/Referrals: Yasmin Lynn MD [Primary Care Provider] - (Date & Time 04/05/2022 3:00 PM Provider Yasmin Lynn MD [facility] ) Diet: Heart Healthy Addtl Attending Provider Instructions: Follow-up with your primary care physician within a week time and likely you will need/CBC/CMP/magnesium/phosphorus levels. Follow-up with your Coumadin clinic in 2 to 3 days time to drop PT/INR, then follow-up with your recommendation thereafter. Continue to take your warfarin as prior. Resume your warfarin from today. Follow-up with your cardiology as an outpatient as prior. Take your medications as prescribed. Pending Studies at Discharge: Yes (Admitting urine culture final results.) Stand-Alone Forms: My [employer], Smoking Cessation Medications and DC Order Prescriptions: New potassium chloride 20 mEq Tablet,Er Particles/Crystals 20 meq PO QAM Qty: 30 0RF Continued cholecalciferol (vitamin D3) [Vitamin D3] 1,000 unit Capsule 1,000 unit PO QAM levothyroxine 75 mcg Capsule 75 mcg PO DAILYBB multivitamin Tablet 1 tab PO QAM omeprazole 20 mg Tablet,Delayed Release (Dr/Ec) 20 mg PO QAM rosuvastatin 20 mg Tablet 20 mg PO DAILY Rx Instructions: takes in afternoon furosemide 40 mg tablet 40 mg PO QAM ascorbic acid (vitamin C) 250 mg tablet 250 mg PO QAM hydroxyzine HCl 25 mg tablet 25 mg PO TID PRN (Reason: Anxiety) docusate sodium [Colace] 100 mg capsule 100 mg PO BID PRN (Reason: Constipation) sertraline 100 mg tablet 200 mg PO DAILY amiodarone [Pacerone] 200 mg tablet 200 mg PO DAILY Qty: 0 0RF buspirone 5 mg tablet 5 mg PO TID PRN (Reason: Anxiety) levetiracetam [Keppra] 1,000 mg Tablet 1,000 mg PO BID warfarin 2.5 mg tablet 2.5 mg PO 2XWK Rx Instructions: , warfarin 2.5 mg tablet 1.25 mg PO 5XWK Rx Instructions: Sun, Mon, Wed, Fri, Sat metoprolol tartrate 50 mg tablet 75 mg PO BID magnesium oxide 400 mg magnesium Capsule 400 mg PO DAILY Vitron-C 65 mg iron- 125 mg Tablet,Delayed Release (Dr/Ec) 1 tab PO BID Discontinued potassium chloride [Klor-Con 10] 10 mEq Tablet Extended Release 10 meq PO QAM Discharge Orders: Discharge Order (Routine); Ordered 04/01/22 Ordered By: Eduard Walker Admission Data Admit Date/Time: 03/30/22 19:42 Attending Provider: Eduard Walker Admit Provider: Suzanne Sotelo Primary Care Provider: Yasmin Lynn Other Providers: Suzanne Sotelo ; Zack Mendez
[2022-04-01] MEDS ORDERED: WARFARIN SOD 1.25 MG TAB PO SCH (16:00)
[2022-04-05] MEDS ORDERED: WARFARIN SOD 2.5 MG TAB PO SCH (16:00)
== END 2022-04-01 14:40 | disposition home or self-care (01) ==
LOC: ED 13:47 → 2N 13:47 → SUATTDRO 19:42 → 2N 22:16